=== PATIENT | male | born 1990 | race Caucasian/White ===

== ENCOUNTER 2020-06-26 07:05 | Emergency (ER) | payer MEDICAID, SELFPAY | END 2020-06-26 08:16 | disposition left against medical advice (07) | PROVIDERS: Emergency Provider Emergency Medicine | DX: R10.9 Unspecified abdominal pain (principal); I10 Essential (primary) hypertension; F17.210 Nicotine dependence, cigarettes, uncomplicated ==

== ENCOUNTER 2020-06-26 08:34 | Inpatient (IN) | payer MEDICAID, SELFPAY ==
[2020-06-26 09:15] VITALS: BP 130/77; PULSE 85; RESP 18; TEMP 36.7; O2SAT 96; BMI 38.4
--- NOTE | 2020-06-26 09:32 | US_ITS ---
EXAMINATION: US ABDOMEN LIMITED CLINICAL INFORMATION: Abdominal pain. COMPARISON: Previous CT of the abdomen and pelvis March 2017 TECHNIQUE: Real-time imaging of the right upper quadrant abdominal viscera. FINDINGS: PANCREAS: Not well visualized due to bowel gas LIVER: Liver echotexture is increased probably representing fatty infiltration. There is a hypoechoic area adjacent to the gallbladder, characteristic location of focal fatty sparing.. No focal hepatic lesion. There is no intrahepatic biliary duct dilatation seen. GALLBLADDER: The gallbladder wall is thickened and edematous measuring 6 mm. No gallstones are seen. The gallbladder is normal in size. There is no pericholecystic fluid. The sterile processing technologist reports the patient is tender over the gallbladder. COMMON BILE DUCT: Normal in caliber measuring 0.7 cm in diameter. RIGHT KIDNEY: Normal. No hydronephrosis. No renal calculi or focal parenchymal lesions. The kidney measures 12.3 cm in maximum dimension. FREE FLUID: None. US/US abdomen limited IMPRESSION: Echogenic liver probably representing fatty infiltration. Thickened edematous gallbladder wall. The gallbladder is normal in size and no gallstones are seen. Differential would include acalculous cholecystitis and gallbladder wall thickening related to liver disease, low albumin and cholangitis. If there is clinical suspicion of acalculous cholecystitis, HIDA scan would be recommended. Nonvisualization of the pancreas.
--- NOTE | 2020-06-26 10:04 | ED.ABDPAIN ---
HPI - Abdominal Pain General Chief Complaint: Abdominal Pain Stated Complaint: abd pain Time Seen by Provider: 06/26/20 09:25 Source: patient Mode of arrival: ambulatory History of Present Illness HPI narrative: 30-year-old male with a past medical history of gallstones presenting to the ED complaining of epigastric/RUQ abdominal pain radiating to back since last night. Admits to similar symptoms in the past with his gallstones, symptoms worse after eating greasy/fatty foods. Admits to associated nausea. Denies fever, chills, dysuria/hematuria, vomiting, diarrhea MD elicited complaint: abdominal pain Related Data Allergies Allergy/AdvReac Type Severity Reaction Status Date / Time aspirin [ASPIRIN] Allergy Unknown STOMACH Unverified 06/26/20 11:53 UPSET morphine [MORPHINE] Allergy Unknown RASH Unverified 06/26/20 11:53 Review of Systems Review of Systems Constitutional: No Weight loss, No Fever, No Chills Cardiovascular: No Chest Pain, No SOB Respiratory: No Cough, No Sputum Gastrointestinal: + Nausea, No Vomiting, No Diarrhea, No Constipation, + Abdominal pain Genitourinary: No irregular bleeding, No Dysuria, No Urinary Frequency, No Hematuria, No Flank Pain Musculoskeletal: No joint pain, No Myalgias, No Joint Swelling Skin: No Skin Lesions, No rash Yes all other systems are reviewed and are negative Physical Exam Vital Signs: Vital Signs: Last Vital Signs Temp 98.0 F 06/26/20 09:15 Pulse 61 06/26/20 16:05 Resp 16 06/26/20 16:05 BP 114/67 06/26/20 16:05 Pulse Ox 98 06/26/20 16:05 Body Mass Index 38.4 Const: General: cooperative and healthy appearing Orientation/consciousness: patient oriented x3 Limitations: no limitations HENMT: Head: Yes normal to inspection Ears: hearing grossly normal bilaterally General nose exam: Normal external nose present Face and sinus: Yes normal facial exam Eyes: General: appearance normal, both eyes and all related structures EOM: EOMs intact bilaterally Neck: Neck: Yes normal visual inspection Resp: Effort & Inspection: normal respiratory effort Cardio: Rate: regular rate GI: Inspection: Yes normal to inspection Palpation (GI): Soft to palpation, Tenderness to palpation present (GI) in the epigastrum and in the RUQ, no guarding and not rigid : General: Yes no CVA tenderness Back/Spine/Pelvis: Back: no CVA tenderness Skin: Rashes: no rashes Wounds: no wounds Neuro: General: patient oriented x3 Gait exam (Neuro): Normal gait present Extrem: General: Yes normal to inspection Course Course Course Narrative: -1221-- no leukocytosis, ALT mildly elevated, labs otherwise unremarkable. UA negative US abdomen limited IMPRESSION: Echogenic liver probably representing fatty infiltration. Thickened edematous gallbladder wall. The gallbladder is normal in size and no gallstones are seen. Differential would include acalculous cholecystitis and gallbladder wall thickening related to liver disease, low albumin and cholangitis. If there is clinical suspicion of acalculous cholecystitis, HIDA scan would be recommended. Nonvisualization of the pancreas >> HIDA scan ordered -head is showing cystic duct obstruction > spoke to surgery Dr. Gonzalez patient will be admitted for acute cholecystitis MDM - Abdominal Pain MDM Narrative Medical decision making narrative: 30-year-old male with a past medical history of gallstones presenting to the ED complaining of epigastric/RUQ abdominal pain radiating to back since last night. On exam VSS, NAD, abdomen tender to palpation epigastric/RUQ. No rebound or guarding. Concern for cholecystitis/cholelithiasis vs pancreatitis. Lower concern for UTI/pyelo/appendicitis or diverticulitis. Plan: Labs, UA, abdomen ultrasound, IVF/symptomatic treatment, reassess Lab Data Result diagrams: 06/26/20 10:08 06/26/20 10:08 Labs: Lab Results 06/26/20 06/26/20 06/26/20 Range/Units 10:08 10:08 10:08 WBC 8.3 (4.8-10.8) X10*3/uL RBC 4.98 (4.60-5.80) X10*6/uL Hgb 14.4 (14.0-18.0) g/dl Hct 44.3 (42-52) % MCV 89.0 (80-98) fL MCH 28.9 (27.0-33.0) pg MCHC 32.5 (31.0-36.0) g/dl RDW 13.9 (11.0-16.0) % Plt Count 246 (160-400) X10*3/uL MPV 10.7 (9.4-12.4) fL Immature Gran % (Auto) 0.2 (0.0-0.4) % Neut % (Auto) 75.6 H (45-73) % Lymph % (Auto) 16.2 L (20-40) % [place] % (Auto) 7.1 (2-11) % Eos % (Auto) 0.7 (0-4) % Baso % (Auto) 0.2 (0-2) % Lymph # (Auto) 1.3 (1.2-4.9) X10*3/uL [place] # (Auto) 0.6 (0.1-1.2) X10*3/uL Eos # (Auto) 0.1 (0.0-0.4) X10*3/uL Baso # (Auto) 0.0 (0.0-0.2) X10*3/uL Abs Immat Gran (auto) 0.02 (0.00-0.03) X10*3/uL Absolute Neuts (auto) 6.2 (2.0-8.3) X10*3/uL Absolute Nucleated RBC 0.000 (0.0-0.012) X10*3/uL Nucleated RBC % (auto) 0.0 (0.0-0.2) /100WBC Hold Blue Top SEE NOTE Sodium 139 (135-145) mmol/L Potassium 4.6 (3.3-5.1) mmol/L Chloride 104 (96-108) mmol/L Carbon Dioxide 29 (22-29) mmol/L Anion Gap 11 L (12-20) BUN 15 (9-16) mg/dL Creatinine 0.85 (0.5-1.4) mg/dL Estim Creat Clear Calc 162.4 Estimated GFR > 60 Random Glucose 96 (60-115) mg/dL Calcium 9.0 (8.4-10.2) mg/dL Magnesium 2.1 (1.6-2.6) mg/dL Total Bilirubin 0.5 (0.0-1.0) mg/dL Direct Bilirubin 0.2 (0.0-0.5) mg/dL AST 23 (5-37) U/L ALT 57 H (0-40) U/L Alkaline Phosphatase 79 (39-117) U/L Total Protein 7.1 (6.5-8.0) g/dL Albumin 4.4 (3.5-5.0) g/dL Lipase (8-78) U/L Urine Color Urine Appearance Urine pH (5.0-8.0) Ur Specific [place] (1.005-1.025) Urine Protein (NEG-TRACE) MG/DL Urine Glucose (UA) (NEG) MG/DL Urine Ketones (NEG) MG/DL Urine Blood (NEG) Urine Nitrite (NEG) Ur Leukocyte Esterase (NEG) 06/26/20 06/26/20 Range/Units 10:08 10:08 WBC (4.8-10.8) X10*3/uL RBC (4.60-5.80) X10*6/uL Hgb (14.0-18.0) g/dl Hct (42-52) % MCV (80-98) fL MCH (27.0-33.0) pg MCHC (31.0-36.0) g/dl RDW (11.0-16.0) % Plt Count (160-400) X10*3/uL MPV (9.4-12.4) fL Immature Gran % (Auto) (0.0-0.4) % Neut % (Auto) (45-73) % Lymph % (Auto) (20-40) % [place] % (Auto) (2-11) % Eos % (Auto) (0-4) % Baso % (Auto) (0-2) % Lymph # (Auto) (1.2-4.9) X10*3/uL [place] # (Auto) (0.1-1.2) X10*3/uL Eos # (Auto) (0.0-0.4) X10*3/uL Baso # (Auto) (0.0-0.2) X10*3/uL Abs Immat Gran (auto) (0.00-0.03) X10*3/uL Absolute Neuts (auto) (2.0-8.3) X10*3/uL Absolute Nucleated RBC (0.0-0.012) X10*3/uL Nucleated RBC % (auto) (0.0-0.2) /100WBC Hold Blue Top Sodium (135-145) mmol/L Potassium (3.3-5.1) mmol/L Chloride (96-108) mmol/L Carbon Dioxide (22-29) mmol/L Anion Gap (12-20) BUN (9-16) mg/dL Creatinine (0.5-1.4) mg/dL Estim Creat Clear Calc Estimated GFR Random Glucose (60-115) mg/dL Calcium (8.4-10.2) mg/dL Magnesium (1.6-2.6) mg/dL Total Bilirubin (0.0-1.0) mg/dL Direct Bilirubin (0.0-0.5) mg/dL AST (5-37) U/L ALT (0-40) U/L Alkaline Phosphatase (39-117) U/L Total Protein (6.5-8.0) g/dL Albumin (3.5-5.0) g/dL Lipase 19 (8-78) U/L Urine Color YELLOW Urine Appearance HAZY Urine pH 7.0 (5.0-8.0) Ur Specific [place] 1.020 (1.005-1.025) Urine Protein NEG (NEG-TRACE) MG/DL Urine Glucose (UA) NEG (NEG) MG/DL Urine Ketones NEG (NEG) MG/DL Urine Blood NEG (NEG) Urine Nitrite NEG (NEG) Ur Leukocyte Esterase NEG (NEG) Discharge Plan Discharge Clinical Impression: Acute cholecystitis Patient Disposition: Admitted As Inpatient [facility] Past Medical History Attestation statement: The following information was validated with the patient. Medical History (Updated 06/26/20 @ 17:20 by EDITH Mejía) Gall stone Social History Social History Alcohol intake: current Alcohol intake frequency: a few times a week Use of substances other than those prescribed or required for medical reasons: Yes Any prior treatment program specific to substance use: No Advance Directives: Yes Advance Directives Information Provided: No Advance Directives on File: No
[2020-06-26 10:12] LABS: MANUAL DIFF FLAG NO
[2020-06-26 10:16] LABS: Basophils Percent Auto 0.2 % (0-2); Eosinophils Absolute Auto 0.1 X10*3/uL (0.0-0.4); Eosinophils Percent Auto 0.7 % (0-4); Hematocrit 44.3 % (42-52); Hemoglobin 14.4 g/dl (14.0-18.0); Imm Gran Abs Auto 0.02 X10*3/uL (0.00-0.03); Imm Gran Pct Auto 0.2 % (0.0-0.4); Lymphocytes Absolute Auto 1.3 X10*3/uL (1.2-4.9); Lymphocytes Percent Auto 16.2 % (20-40); Mean Corpuscular HGB Conc 32.5 g/dl (31.0-36.0); Mean Corpuscular Hemoglobin 28.9 pg (27.0-33.0); Mean Platelet Volume 10.7 fL (9.4-12.4); Monocytes Absolute Auto 0.6 X10*3/uL (0.1-1.2); Monocytes Percent Auto 7.1 % (2-11); Neutrophils Absolute Auto 6.2 X10*3/uL (2.0-8.3); Neutrophils Percent Auto 75.6 % (45-73); Platelet Count 246 X10*3/uL (160-400); Red Blood Count 4.98 X10*6/uL (4.60-5.80); Red Cell Distribution Width 13.9 % (11.0-16.0); White Blood Count 8.3 X10*3/uL (4.8-10.8)
[2020-06-26 10:17] LABS: Appearance Urine HAZY; Color Urine YELLOW; Glucose Urine UA NEG (NEG); Leukocyte Esterase Urine NEG (NEG); Nitrite Urine NEG (NEG); Urine Blood NEG (NEG); Urine Ketones NEG (NEG); Urine Protein NEG (NEG-TRACE)
[2020-06-26] MEDS: 0.9 % Sodium Chloride 1,000 ML 999 ML IVCONT (10:19)
[2020-06-26] MEDS: Ketorolac Tromethamine 15 MG/ML VIAL IVPUSH (10:19)
[2020-06-26] MEDS: ondansetron HCL 4 MG/2 ML VIAL IVPUSH (10:19)
[2020-06-26 10:38] LABS: Alanine Aminotransferase 57 U/L (0-40); Albumin Level 4.4 g/dL (3.5-5.0); Alkaline Phosphatase 79 U/L (39-117); Anion Gap 11 (12-20); Aspartate Amino Transferase 23 U/L (5-37); Bilirubin Direct 0.2 mg/dL (0.0-0.5); Bilirubin Total 0.5 mg/dL (0.0-1.0); Blood Urea Nitrogen 15 mg/dL (9-16); Carbon Dioxide 29 mmol/L (22-29); Chloride 104 mmol/L (96-108); Creatinine Clr Calc Pharmacy 162.4; Estimated Glomerular Filt Rate > 60; Glucose Random 96 mg/dL (60-115); Magnesium 2.1 mg/dL (1.6-2.6); Potassium 4.6 mmol/L (3.3-5.1); Sodium 139 mmol/L (135-145); Total Protein 7.1 g/dL (6.5-8.0)
[2020-06-26 10:39] LABS: Lipase 19 U/L (8-78)
[2020-06-26 11:44] VITALS: BP 123/80; PULSE 72; RESP 16; O2SAT 98
[2020-06-26] MEDS: HYDROmorphone HCl 0.5 MG/0.5 ML SYRINGE IVPUSH (11:56)
--- NOTE | 2020-06-26 12:01 | PC.NURSE ---
Pt states minimal pain relief with treatment, thus far. Juan Ramon, FARM MANAGEMENT ADVISER made aware and provided order. Pt medicated per emar. Will continue to monitor.
--- NOTE | 2020-06-26 13:10 | NM_ITS ---
EXAMINATION: HIDA SCAN. CLINICAL INFORMATION: Right upper quadrant pain. No gallstones. COMPARISON: Ultrasound abdomen 06/26/2020. TECHNIQUE: Following intravenous administration of 5 mCi of 99m technetium mebrofenin, images over the right upper quadrant graft in up to 2 hours. FINDINGS: There is normal hepatic uptake without any focal defect. There is prompt visualization of CBD by 60 minutes. Small bowel is visualized by by 35 minutes. Gallbladder is not visualized up to 2 hours. NM/NM hepatobiliary wo pharm IMPRESSION: Findings consistent with cystic duct obstruction. Normal patency of CBD. Normal hepatic uptake.
--- NOTE | 2020-06-26 14:35 | PC.NURSE ---
Pt at [facility].
--- NOTE | 2020-06-26 16:04 | PC.NURSE ---
Pt returned from [facility].
[2020-06-26 16:05] VITALS: BP 114/67; PULSE 61; RESP 16; O2SAT 98
[2020-06-26] MEDS: Piperacillin Sodium/Tazobactam 3.375 GM in 0.9 % Sodium Chloride 50 ML IV (18:35)
[2020-06-26 18:57] LABS: COVID-19 Test Negative (Negative)
[2020-06-26 19:02] LABS: Lactic Acid 0.6 mmol/L (0.5-2.0)
[2020-06-26 20:00] VITALS: BP 120/59; PULSE 73; RESP 20; TEMP 36.7; O2SAT 98
--- NOTE | 2020-06-26 21:53 | MHC.CM.PN ---
CM met with pt. NPO after MN. For surgery. Pt lives with girlfriend in apartment on the 4th floor. Tells CM he will stay with brother who lives on first floor after surgery. Pt tells Cm he drove himself to the [facility]. Aware that he cannot drive himself home after surgery. Pt cannot remember his PCP. States its someone at [facility]. Pt willing to complete HCP. Requests his mother, Karla Romano ([phone]) be his HCP. D/C plan is home without services. Family to provide transportation. CM to follow for d/c needs
--- NOTE | 2020-06-26 22:24 | MHC.CM.PN ---
HCP reviewed, completed and signed per protocol. Copies to pt. Uploaded into [employer] and [employer].
[2020-06-27] VITALS (15 sets, daily range): BP systolic 105–154; BP diastolic 62–91; PULSE 64–82; RESP 14–20; TEMP 36.2–36.9; O2SAT 93–100; BMI 38.3
[2020-06-27] MEDS: Piperacillin Sodium/Tazobactam 3.375 GM in 0.9 % Sodium Chloride 50 ML IV ×2 (00:50→05:37)
--- NOTE | 2020-06-27 09:23 | P.HPGS_ITS ---
History of Present Illness History of Present Illness Date of Service: 06/27/20 Chief complaint: Cholecystitis Narrative: Osvaldo Mcnamara is a 30 year old male who presented to the emergency department yesterday with his 3rd episode epigastric discomfort after eating fatty meals. Patient had been seen in the emergency department previously for this discomfort and had ultrasound documentation of cholelithiasis without cholecystitis previously. Patient reports this episode began yesterday morning and he came to the emergency department around 7 in the morning. He reports the prior evening he had Malay food and the pain began about 1 hour later in epigastrium. He reports no exacerbating or alleviating factors. He reports the pain was a 10/10 on a pain scale and radiated through the epigastrium to his back. He was seen in the emergency department and given pain medications with resolution of the pain. Denies any further abdominal pain. Patient did undergo ultrasound which showed no evidence of gallstones but thickened gallbladder wall. Patient also underwent a HIDA scan which showed no visualization of the gallbladder after 2 hours. Patient denies any fever chills shortness of breath or chest pain. Review of Systems Review of Systems: Yes all other systems are reviewed and are negative Constitutional: Constitutional: Denies chills, Denies daytime sleepiness, Denies difficulty sleeping, Denies excessive sweating, Denies fatigue, Denies fever(s), Denies headache(s), Denies night sweats, Denies snoring, Denies stops breathing during sleep and Denies weakness Eyes: Eyes: Denies blurry vision, Denies other visual disturbances and Denies requires corrective lenses ENT: Denies bleeding gums, Denies dysphagia, Reports dizziness, Denies headache(s), Denies hearing loss, Denies sinus pain and Denies sore throat Cardiovascular: Cardiovascular: Denies chest pain, Denies chest pain at rest, Denies chest pain with activity, Denies syncope, Denies irregular heart rhythm, Denies leg edema, Denies lightheadedness, Denies dyspnea, Denies dyspnea on exertion and Denies orthopnea Respiratory: Respiratory: Denies chest congestion, Denies cough, Denies dyspnea, Denies dyspnea on exertion, Denies snoring and Denies wheezing Gastrointestinal: Gastrointestinal: Denies abdominal pain, Denies melena, Denies bloating, Denies constipation, Denies dysphagia, Denies heartburn, Denies diarrhea, Denies nausea and Denies vomiting Genitourinary: Genitourinary: Denies hematuria, Denies difficulty urinating and Denies nocturia Musculoskeletal: Musculoskeletal: Denies abnormal gait, Denies back pain, Denies deformity, Denies arthralgias, Denies joint swelling and Denies stiffness Integumentary/Breasts: Skin/Breast: Denies breast pain, Denies breast mass and Denies nipple discharge Neurologic: Denies abnormal gait, Reports dizziness, Denies syncope, Denies headache(s), Denies seizure-like activity and Denies weakness Psychiatric: Psychiatric: Denies abnormal sleep pattern, Denies anxiety, Denies depression and Denies panic attacks Endocrine: Endocrine: Denies excessive sweating, Denies fatigue, Denies heat intolerance, Denies polyphagia, Denies polydipsia and Denies polyuria Hematologic/Lymphatic: Hematologic/Lymphatic: Denies easy bleeding and Denies easy bruising Allergic/Immunologic: Allergic/Immunologic: Denies wheezing PMFSH Past Medical History Medical History (Updated 06/27/20 @ 09:25 by Monserrat Corbett MD) Cholelithiasis HTN (hypertension) Obesity Family History Family History (Updated 06/27/20 @ 09:27 by Monserrat Corbett MD) Mother History of cholecystectomy Father No problems noted. Brother No problems noted. Brother No problems noted. Sister No problems noted. Sister No problems noted. Daughter No problems noted. Surgical History Surgical History (Updated 06/27/20 @ 09:25 by Monserrat Corbett MD) No pertinent past surgical history Social History Social History (Updated 06/27/20 @ 09:28 by Monserrat Corbett MD) Household Members: Family Housing: House Alcohol intake: current Alcohol intake frequency: holidays/special occasions only Alcohol type: beer Smoking Status: Current every day smoker Tobacco Type: Cigarette Packs Per Day: 0.5 Cigarettes Per Day: 10.0 Smoked in Last 30 Days: Yes Patient Interested in Nicotine Replacement: No Patient Given Instructions on How to Stop Smoking: No Use of substances other than those prescribed or required for medical reasons: Yes Substance Use Type Other:: PCP Last Used Substance: Days (ago) Last Used Substance Other:: 2 days ago Any prior treatment program specific to substance use: No Do you feel safe in your current relationship?: No Is there a partner from a previous relationship who is making you feel unsafe now?: No Are you made to feel afraid or neglected: No Advance Directives: No Advance Directives Information Provided: No Advance Directives on File: No Do you have thoughts of harming others: None Do you have a plan to hurt others: No Plan Recently lost weight without trying: No service: No Current occupational status: unemployed Meds Allergies Allergy/AdvReac Type Severity Reaction Status Date / Time aspirin [ASPIRIN] Allergy Unknown STOMACH Verified 06/27/20 09:28 UPSET morphine [MORPHINE] Allergy Unknown RASH Verified 06/27/20 09:28 Home Medications Medication Instructions Recorded Confirmed Type No Known Home Meds 06/26/20 06/26/20 History Physical Exam Vital Signs: Vital Signs: Last Vital Signs Temp 97.8 F 06/27/20 08:00 Pulse 80 06/27/20 08:00 Resp 16 06/27/20 08:00 BP 145/72 H 06/27/20 08:00 Pulse Ox 97 06/27/20 08:00 Body Mass Index 38.4 Const: General: cooperative, healthy appearing, comfortable, no acute distress and well developed Nutritional Appearance: obese Bjorn entation/consciousness: patient oriented x3 Limitations: no limitations HENMT: Head: Yes normal to inspection, Yes normocephalic and Yes atraumatic Mouth: oropharynx normal and moist mucous membranes Eyes: General: appearance normal, both eyes and all related structures Sclerae: sclerae normal EOM: EOMs intact bilaterally Neck: Neck: Yes normal visual inspection, Yes full ROM and Yes no lymphadenopathy Thyroid: Thyroid normal Chest: Chest palpation & inspection: normal inspection of the chest Resp: Effort & Inspection: normal respiratory effort and able to speak in complete sentences Auscultation: clear to auscultation bilaterally, no crackles, no rales, no rhonchi and no wheezes Cardio: Rate: regular rate Heart sounds: S1 normal heart sound present and S2 normal heart sound present GI: Inspection: Yes obesity Palpation (GI): Soft to palpation, nontender, no guarding and no hernias Rectal Exam - Male: Yes deferred Skin: General skin exam: no rashes or lesions noted and no jaundice Wounds: no wounds Hair: normal Nails: normal Neuro: General: patient oriented x3 Cranial nerves: Yes CN's II-XII intact bilaterally Cognition (Neuro): normal cognition Gait exam (Neuro): Normal gait present Extrem: General: Yes normal to inspection, Yes full ROM, Yes no clubbing, cyanosis or edema and Yes no calf tenderness Psych: Appearance: grossly normal Mental Status: mental status grossly normal Speech and movement: Normal speech and movement present Affect: normal affect Attitude: cooperative Thought process: Normal thought process present Thought content: Normal thought content present Insight: Good insight present (Psych) Judgement: Good judgement present (Psych) Results Results Labs: Short CBC 06/26/20 Range/Units 10:08 WBC 8.3 (4.8-10.8) X10*3/uL Hgb 14.4 (14.0-18.0) g/dl Hct 44.3 (42-52) % Plt Count 246 (160-400) X10*3/uL BMP 06/26/20 10:08 Sodium 139 Potassium 4.6 Chloride 104 Carbon Dioxide 29 BUN 15 Creatinine 0.85 Calcium 9.0 Liver Function 06/26/20 Range/Units 10:08 Total Bilirubin 0.5 (0.0-1.0) mg/dL Direct Bilirubin 0.2 (0.0-0.5) mg/dL AST 23 (5-37) U/L ALT 57 H (0-40) U/L Alkaline Phosphatase 79 (39-117) U/L Albumin 4.4 (3.5-5.0) g/dL Urine 06/26/20 Range/Units 10:08 Urine Color YELLOW Urine Appearance HAZY Urine pH 7.0 (5.0-8.0) Ur Specific [place] 1.020 (1.005-1.025) Urine Protein NEG (NEG-TRACE) MG/DL Urine Glucose (UA) NEG (NEG) MG/DL Assessment and Plan (1) Acute cholecystitis: Status: Acute This is a 30-year-old gentleman with 3 prior episodes biliary colic now with acute cholecystitis by HIDA scan. Patient will be taken to the operating room for a laparoscopic possible open cholecystectomy for treatment of acute cholecystitis. Risks benefits and alternatives were discussed with the patient he agrees to proceed.
--- NOTE | 2020-06-27 09:43 | HO.ANESPROP2 ---
[facility] Past Medical History Medical History Cholelithiasis HTN (hypertension) Obesity Family History Family History Mother History of cholecystectomy Father No problems noted. Brother No problems noted. Brother No problems noted. Sister No problems noted. Sister No problems noted. Daughter No problems noted. Surgical History Surgical History No pertinent past surgical history Social History Social History Household Members: Family Housing: House Alcohol intake: current Alcohol intake frequency: holidays/special occasions only Alcohol type: beer Smoking Status: Current every day smoker Tobacco Type: Cigarette Packs Per Day: 0.5 Cigarettes Per Day: 10.0 Smoked in Last 30 Days: Yes Patient Interested in Nicotine Replacement: No Patient Given Instructions on How to Stop Smoking: No Use of substances other than those prescribed or required for medical reasons: Yes Substance Use Type Other:: PCP Last Used Substance: Days (ago) Last Used Substance Other:: 2 days ago Any prior treatment program specific to substance use: No Do you feel safe in your current relationship?: No Is there a partner from a previous relationship who is making you feel unsafe now?: No Are you made to feel afraid or neglected: No Advance Directives: No Advance Directives Information Provided: No Advance Directives on File: No Do you have thoughts of harming others: None Do you have a plan to hurt others: No Plan Recently lost weight without trying: No service: No Current occupational status: unemployed Meds Allergies Allergy/AdvReac Type Severity Reaction Status Date / Time aspirin [ASPIRIN] Allergy Unknown STOMACH Verified 06/27/20 09:28 UPSET morphine [MORPHINE] Allergy Unknown RASH Verified 06/27/20 09:28 Home Medications Medication Instructions Recorded Confirmed Type No Known Home Meds 06/26/20 06/26/20 History Exam Exam Date and Time: June 27, [id number] Height,Weight and Vital Signs: Height 5 ft 9 in Weight 117.934 kg Last Vital Signs Temp 97.8 F 06/27/20 08:00 Pulse 80 06/27/20 08:00 Resp 16 06/27/20 08:00 BP 145/72 H 06/27/20 08:00 Pulse Ox 97 06/27/20 08:00 Pertinent Lab Results Pertinent Lab Results: Laboratory Tests 06/26/20 06/26/20 06/26/20 10:08 10:08 10:08 WBC 8.3 RBC 4.98 Hgb 14.4 Hct 44.3 MCV 89.0 MCH 28.9 MCHC 32.5 RDW 13.9 Plt Count 246 MPV 10.7 Immature Gran % (Auto) 0.2 Neut % (Auto) 75.6 H Lymph % (Auto) 16.2 L Wilkinson % (Auto) 7.1 Eos % (Auto) 0.7 Baso % (Auto) 0.2 Lymph # (Auto) 1.3 Wilkinson # (Auto) 0.6 Eos # (Auto) 0.1 Baso # (Auto) 0.0 Abs Immat Gran (auto) 0.02 Absolute Neuts (auto) 6.2 Absolute Nucleated RBC 0.000 Nucleated RBC % (auto) 0.0 Hold Blue Top SEE NOTE Sodium 139 Potassium 4.6 Chloride 104 Carbon Dioxide 29 Anion Gap 11 L BUN 15 Creatinine 0.85 Estim Creat Clear Calc 162.4 Estimated GFR > 60 Random Glucose 96 Lactic Acid Calcium 9.0 Magnesium 2.1 Total Bilirubin 0.5 Direct Bilirubin 0.2 AST 23 ALT 57 H Alkaline Phosphatase 79 Total Protein 7.1 Albumin 4.4 Lipase Urine Color Urine Appearance Urine pH Ur Specific [place] Urine Protein Urine Glucose (UA) Urine Ketones Urine Blood Urine Nitrite Ur Leukocyte Esterase COVID-19 ([facility]) COVID-19 Clin Com Blood Type Antibody Screen 06/26/20 06/26/20 06/26/20 10:08 10:08 18:28 WBC RBC Hgb Hct MCV MCH MCHC RDW Plt Count MPV Immature Gran % (Auto) Neut % (Auto) Lymph % (Auto) Wilkinson % (Auto) Eos % (Auto) Baso % (Auto) Lymph # (Auto) Wilkinson # (Auto) Eos # (Auto) Baso # (Auto) Abs Immat Gran (auto) Absolute Neuts (auto) Absolute Nucleated RBC Nucleated RBC % (auto) Hold Blue Top Sodium Potassium Chloride Carbon Dioxide Anion Gap BUN Creatinine Estim Creat Clear Calc Estimated GFR Random Glucose Lactic Acid Calcium Magnesium Total Bilirubin Direct Bilirubin AST ALT Alkaline Phosphatase Total Protein Albumin Lipase 19 Urine Color YELLOW Urine Appearance HAZY Urine pH 7.0 Ur Specific [place] 1.020 Urine Protein NEG Urine Glucose (UA) NEG Urine Ketones NEG Urine Blood NEG Urine Nitrite NEG Ur Leukocyte Esterase NEG COVID-19 ([facility]) Negative COVID-19 Clin Com See Note Blood Type Antibody Screen 06/26/20 06/26/20 18:28 18:28 WBC RBC Hgb Hct MCV MCH MCHC RDW Plt Count MPV Immature Gran % (Auto) Neut % (Auto) Lymph % (Auto) Wilkinson % (Auto) Eos % (Auto) Baso % (Auto) Lymph # (Auto) Wilkinson # (Auto) Eos # (Auto) Baso # (Auto) Abs Immat Gran (auto) Absolute Neuts (auto) Absolute Nucleated RBC Nucleated RBC % (auto) Hold Blue Top Sodium Potassium Chloride Carbon Dioxide Anion Gap BUN Creatinine Estim Creat Clear Calc Estimated GFR Random Glucose Lactic Acid 0.6 Calcium Magnesium Total Bilirubin Direct Bilirubin AST ALT Alkaline Phosphatase Total Protein Albumin Lipase Urine Color Urine Appearance Urine pH Ur Specific [place] Urine Protein Urine Glucose (UA) Urine Ketones Urine Blood Urine Nitrite Ur Leukocyte Esterase COVID-19 ([facility]) COVID-19 Clin Com Blood Type A Positive Antibody Screen NEGATIVE
--- NOTE | 2020-06-27 12:07 | W.PM.OPN ---
Operative Note Operative Note Date of Service: 06/27/20 Narrative: Patient was brought into the operating room, placed on operating table in the supine position. Normal DVT prophylaxis was instituted. Patient received 2 g of IV cefotetan preoperatively. General anesthesia was induced. The abdomen was prepped and draped in the normal sterile fashion using ChloraPrep. A safety time-out was performed. Next a mixture of 1% lidocaine with epinephrine and 0.25% Marcaine plain was used to anesthetize the planned incision site in the supraumbilical position. A 11. Scalpel was used to make a 2 cm infraumbilical transverse surgical incision through which the subcutaneous tissues were dissected down to level the fascia. The fascia was grasped did between 2 Aure clamps and entered using a 11. Scalpel for about 1 cm vertically. An 0 Vicryl suture was placed on either side of the open fascia. A finger was used to bluntly gain access to the intra-abdominal cavity. A 12 mm Corcoran trocar was introduced into the abdomen and secured to the abdominal wall using sutures on the fascia. The abdomen was insufflated to 15 mmHg. Next a 5 mm 30 degree laparoscoped was introduced into the abdomen and used to survey the abdominal cavity which was normal. Next 3 additional 5 mm ports were placed. One port was placed in the epigastrium to the right of the falciform ligament, 2 ports were placed in the right upper quadrant 1 laterally and 1 more medially. The patient was placed in reverse Trendelenburg and left side tilted down. A grasper was placed through the right lateral port and used to grasp the fundus of the gallbladder and retracted it cephalad. Another grasper was used to grasp the infundibulum of the gallbladder retracted inferior and laterally. We cleared the cystic artery and cystic duct circumferentially and the distal 1/3 of the gallbladder with the gallbladder fossa. This gave us the critical view of safety. We then placed 3 clips on the cystic duct distal to the gallbladder 1 clip on the cystic duct proximal to the gallbladder. We placed 1 clip on the cystic artery proximal to the gallbladder and 2 clips on the cystic artery distal to the gallbladder and transected both structures in between clips. We took the remainder of the gallbladder off the gallbladder fossa and placed in Endo-Catch bag and removed it from the abdomen. We then evaluated the gallbladder fossa it was hemostatic there was no evidence of any bile draining or any bleeding noted. The clips were in place on the cystic artery and cystic duct stumps. We then removed the 5 mm ports under direct vision there was no bleeding noted from these port sites. We desufflated the abdomen through the last remaining port and removed the last port and laparoscope. We reapproximated the fascial defect at the umbilicus using a [id number] 0 Vicryl suture and tied the original fascial sutures over that closure. There was no residual fascial defect. We placed an additional amount of local anesthetic into the fascia closure site. We closed all skin incisions with a 4 Monocryl subcuticular stitch. We cleaned and dried the skin and applied Dermabond skin glue to all skin incisions. All counts were correct at the end the case there were no complications. The patient was awake and in stable condition prior to extubation and transfer to the recovery room.
--- NOTE | 2020-06-27 12:09 | P.BOP_ITS ---
Brief Operative Note Date of Service: 06/27/20 Pre-op diagnosis: Acute cholecystitis Post-op diagnosis: same Procedure: Laparoscopic cholecystectomy Implants: Medium clips Surgeon: Monserrat Corbett MD Anesthesia: GETA Shopping Investigator: Viviana Porter Estimated blood loss (mL): 10 Pathology: other (Gallbladder) Condition: stable Disposition: PACU
[2020-06-27] MEDS: fentaNYL citrate/PF 100 MCG/2 ML VIAL 50 MCG IVPUSH (13:06)
[2020-06-27] MEDS: oxyCODONE HCl Immed Release 5 MG TABLET 10 MG PO ×2 (13:15→17:04)
--- NOTE | 2020-06-27 13:25 | PC.NURSE ---
1316 STS PAIN NOW 11/30 ASKING WHEN HE WILL GO UPSTAIRS, O2 DECREASED TO 2L NC CAPNOGRAPHY, ENC REST ABD INCISIONS GLUE CDI ICE PACKS REMAIN TO ABD
--- NOTE | 2020-06-27 14:35 | PM.DS ---
DS: Providers Provider Date of Service: 06/27/20 Date of admission: 06/26/20 17:51 Primary care physician: Unknown Physician DS: Diagnosis Discharge Diagnosis (1) Acute cholecystitis: Status: Acute (2) S/P laparoscopic cholecystectomy: Status: Acute DS: Medications Discharge Medications Home Medications: Previous Rx's Medication Instructions Recorded docusate sodium [Colace] 100 mg PO BID PRN #30 cap 06/27/20 oxycodone 5 mg PO Q4H PRN #24 tab 06/27/20 DS: Summary Hospital Course Hospital Course: BRIEF HPI: Osvaldo Mcnamara is a 30 year old male who presented to the emergency department yesterday with his 3rd episode epigastric discomfort after eating fatty meals. Patient had been seen in the emergency department previously for this discomfort and had ultrasound documentation of cholelithiasis without cholecystitis previously. Patient reports this episode began yesterday morning and he came to the emergency department around 7 in the morning. He reports the prior evening he had [place] food and the pain began about 1 hour later in epigastrium. He reports no exacerbating or alleviating factors. He reports the pain was a 10/10 on a pain scale and radiated through the epigastrium to his back. He was seen in the emergency department and given pain medications with resolution of the pain. Denies any further abdominal pain. Patient did undergo ultrasound which showed no evidence of gallstones but thickened gallbladder wall. Patient also underwent a HIDA scan which showed no visualization of the gallbladder after 2 hours. Patient denies any fever chills shortness of breath or chest pain. HOSPITAL COURSE: The patient was admitted to the surgical service for further treatment of acute cholecystitis. He was made npo, started on IVF and IV zosyn. Treatment options were discussed with the patient including laparoscopic cholecystectomy possible open and antibiotics and observation. The patient elected to proceed with surgery and he was added onto the OR schedule for that day. On 06/27/20, a laparoscopic cholecystectomy was performed by Dr. Corbett without complication. The patient tolerated the procedure well and was doing very well post operatively. He was reassessed on the floor and was tolerating a solid diet and was comfortable on PO analgesics. His abdomen was benign with clean and intact incisions. He felt ready for discharge. He was discharged to home on 06/27/20 in stable condition. He is to follow up with Dr. Corbett in office in 2 weeks. Status at Discharge Functional status at discharge: independent ambulation Overall status at discharge: patient is progressing back to baseline Time Spent with Patient Time attestation: Total time spent providing and/or coordinating discharge services: Discharge coordination time: Less than 30 minutes Physical Exam Vital Signs: Vital Signs: Last Vital Signs Temp 97.6 F 06/27/20 13:45 Pulse 70 06/27/20 13:45 Resp 16 06/27/20 13:45 BP 123/79 06/27/20 13:45 Pulse Ox 98 06/27/20 13:45 Body Mass Index 38.3 Const: General: healthy appearing, comfortable, no acute distress and alert Orientation/consciousness: patient oriented x3 Eyes: Sclerae: sclerae normal Resp: Effort & Inspection: normal respiratory effort Cardio: Rate: regular rate GI: Inspection: No distended and Yes incision (clean, intact) Palpation (GI): Soft to palpation, Tenderness to palpation present (GI) (mild, incisional), no guarding and not rigid Percussion: Yes normal to percussion Skin: General skin exam: no rashes or lesions noted Neuro: General: patient oriented x3 Extrem: General: Yes no clubbing, cyanosis or edema DS: Data Data Completed and Pending Pending studies at discharge: Pending at discharge 06/27/20 12:00 Surgical [PTH] Routine Labs on day of discharge: Laboratory Tests 06/26/20 06/26/20 06/26/20 10:08 10:08 10:08 WBC 8.3 RBC 4.98 Hgb 14.4 Hct 44.3 MCV 89.0 MCH 28.9 MCHC 32.5 RDW 13.9 Plt Count 246 MPV 10.7 Immature Gran % (Auto) 0.2 Neut % (Auto) 75.6 H Lymph % (Auto) 16.2 L Williamson % (Auto) 7.1 Eos % (Auto) 0.7 Baso % (Auto) 0.2 Lymph # (Auto) 1.3 Williamson # (Auto) 0.6 Eos # (Auto) 0.1 Baso # (Auto) 0.0 Abs Immat Gran (auto) 0.02 Absolute Neuts (auto) 6.2 Absolute Nucleated RBC 0.000 Nucleated RBC % (auto) 0.0 Hold Blue Top SEE NOTE Sodium 139 Potassium 4.6 Chloride 104 Carbon Dioxide 29 Anion Gap 11 L BUN 15 Creatinine 0.85 Estim Creat Clear Calc 162.4 Estimated GFR > 60 Random Glucose 96 Lactic Acid Calcium 9.0 Magnesium 2.1 Total Bilirubin 0.5 Direct Bilirubin 0.2 AST 23 ALT 57 H Alkaline Phosphatase 79 Total Protein 7.1 Albumin 4.4 Lipase Urine Color Urine Appearance Urine pH Ur Specific [place] Urine Protein Urine Glucose (UA) Urine Ketones Urine Blood Urine Nitrite Ur Leukocyte Esterase COVID-19 ([facility]) COVID-19 Clin Com Blood Type Antibody Screen 06/26/20 06/26/20 06/26/20 10:08 10:08 18:28 WBC RBC Hgb Hct MCV MCH MCHC RDW Plt Count MPV Immature Gran % (Auto) Neut % (Auto) Lymph % (Auto) Williamson % (Auto) Eos % (Auto) Baso % (Auto) Lymph # (Auto) Williamson # (Auto) Eos # (Auto) Baso # (Auto) Abs Immat Gran (auto) Absolute Neuts (auto) Absolute Nucleated RBC Nucleated RBC % (auto) Hold Blue Top Sodium Potassium Chloride Carbon Dioxide Anion Gap BUN Creatinine Estim Creat Clear Calc Estimated GFR Random Glucose Lactic Acid Calcium Magnesium Total Bilirubin Direct Bilirubin AST ALT Alkaline Phosphatase Total Protein Albumin Lipase 19 Urine Color YELLOW Urine Appearance HAZY Urine pH 7.0 Ur Specific [place] 1.020 Urine Protein NEG Urine Glucose (UA) NEG Urine Ketones NEG Urine Blood NEG Urine Nitrite NEG Ur Leukocyte Esterase NEG COVID-19 ([facility]) Negative COVID-19 Clin Com See Note Blood Type Antibody Screen 06/26/20 06/26/20 18:28 18:28 WBC RBC Hgb Hct MCV MCH MCHC RDW Plt Count MPV Immature Gran % (Auto) Neut % (Auto) Lymph % (Auto) Williamson % (Auto) Eos % (Auto) Baso % (Auto) Lymph # (Auto) Williamson # (Auto) Eos # (Auto) Baso # (Auto) Abs Immat Gran (auto) Absolute Neuts (auto) Absolute Nucleated RBC Nucleated RBC % (auto) Hold Blue Top Sodium Potassium Chloride Carbon Dioxide Anion Gap BUN Creatinine Estim Creat Clear Calc Estimated GFR Random Glucose Lactic Acid 0.6 Calcium Magnesium Total Bilirubin Direct Bilirubin AST ALT Alkaline Phosphatase Total Protein Albumin Lipase Urine Color Urine Appearance Urine pH Ur Specific [place] Urine Protein Urine Glucose (UA) Urine Ketones Urine Blood Urine Nitrite Ur Leukocyte Esterase COVID-19 ([facility]) COVID-19 Clin Com Blood Type A Positive Antibody Screen NEGATIVE Discharge Plan Discharge Patient Disposition: Home, Self-Care Referrals: Monserrat Corbett MD [Physician] - 2 Weeks Physician,Unknown [Primary Care Provider] - Discharge Medications: New oxycodone 5 mg tablet 5 mg PO Q4H PRN (Reason: pain) Qty: 24 RF: 0 docusate sodium [Colace] 100 mg capsule 100 mg PO BID PRN (Reason: constipation) Qty: 30 RF: 0 Discharge Orders: Discharge Order (Routine); Ordered 06/27/20 Ordered By: Viviana Porter Diet: advance to usual diet Activity on Discharge: No heavy lifting Stand Alone Forms: Patient Portal Discharge page, Work/School Release Activity Restrictions/Additional Instructions: If the incision area is tender, you may apply an ice pack for short intervals (No more than 20 minutes on, followed by at least 20 minutes off). Do not apply heat. Do not use creams, lotions, or topical antibiotics unless instructed to do so by your surgeon. These can cause infection or allergic reaction. Ok to shower. No tub bath or swimming. No heavy lifting over 10lbs x 4 weeks. Follow up with Dr. Corbett in office in 2 weeks. Call Your Doctor If: -Your temperature exceeds 101.5? F -You experience excessive pain or swelling -You have an unexpected reaction to medication -You have excessive bleeding -You experience continued vomiting/nausea -Your incision begins to separate -Your incision shows signs of infection such as increased redness, swelling, excessive pain, drainage (light blood or clear fluid is normal) or heat Visit Report Forms: Patient Portal Discharge page Care Plan Goals: return to baseline health and activity following recovery period Health Concerns: Acute cholecystitis s/p laparoscopic cholecystectomy Plan of Treatment: Discharge to home, f/u in office
--- NOTE | 2020-06-27 15:38 | MHC.CM.PN ---
Patient has been medically cleared for dc to home, no services.
== END 2020-06-27 18:30 | disposition home or self-care (01) | DRG 263 ==
LOC: HO.ED 17:20 → HO.EDOVER 18:04 → HO.S3 22:09
PROVIDERS: Physician Assistant; Admitting Provider Surgery; Emergency Provider Emergency Medicine; Visit Provider Surgery
PROC: 0FT44ZZ Resection of Gallbladder, Percutaneous Endoscopic Approach (ICD-10-PCS; CPT 47562; principal; 2020-06-27 10:30)
DX: K81.0 Acute cholecystitis (principal); F17.210 Nicotine dependence, cigarettes, uncomplicated; Z20.822 Contact with and (suspected) exposure to COVID-19; Z71.6 Tobacco abuse counseling; Z88.5 Allergy status to narcotic agent; Z88.6 Allergy status to analgesic agent
CPT/HCPCS: 47562; 36415; 76705; 78226; 80048; 80076; 81003; 83605; 83690; 83735; 85025; 86850; 86900; 86901; 87040; 87635; 88304; 96361; 96374; 96375; 99284; 99285; A9537; J1100; J1170; J1885; J2250; J2405; J2543; J3010

== ENCOUNTER 2020-06-27 22:44 | Emergency (ER) | payer MEDICAID, SELFPAY ==
[2020-06-27 22:50] VITALS: BP 129/79; PULSE 119; RESP 24; TEMP 37.4; O2SAT 94; BMI 38.4
--- NOTE | 2020-06-28 00:08 | ED_ITS ---
HPI - Abdominal Pain General Chief Complaint: Abdominal Pain Stated Complaint: pain Source: patient Mode of arrival: ambulatory Limitations: no limitations History of Present Illness HPI narrative: 30-year-old male presents with abdominal pain after laparoscopic cholecystectomy. Patient was unable to obtain his pain medications from the [facility] that Dr. Carlos Sahu scribed because the pharmacy did not carry the medication in stock. He states being 10/10 pain, but does not report any other symptoms. He denies fevers, chills, nausea, vomiting, chest pain or pressure, palpitations, and edema. MD elicited complaint: abdominal pain Pertinent past history: other (Status post cholecystectomy on 06/27/2020) Pain Consistency: constant Location: diffuse Severity: severe Pain scale (0-10): 10 Quality: aching Exacerbating factors: eating, bowel movement and movement Relieving factors: nothing Context: recent surgery/procedure Associated symptoms: denies other symptoms Related Data Previous Rx's Medication Instructions Recorded docusate sodium [Colace] 100 mg PO BID PRN #30 cap 06/27/20 oxycodone 5 mg PO Q4H PRN #24 tab 06/27/20 oxycodone 5 mg PO Q6H PRN #24 tab 06/28/20 Allergies Allergy/AdvReac Type Severity Reaction Status Date / Time aspirin [ASPIRIN] Allergy Unknown STOMACH Verified 06/27/20 09:28 UPSET morphine [MORPHINE] Allergy Unknown RASH Verified 06/27/20 09:28 Review of Systems Review of Systems Constitutional: No Fever, No Chills ENT/Mouth: No sore throat Eyes: No Eye Pain, No Swelling, No Redness Cardiovascular: No Chest Pain, No SOB Respiratory: No Cough, No Sputum, No Wheezing Gastrointestinal: No Nausea, no Vomiting, No Diarrhea, positive abdominal pain Genitourinary: No Dysuria, no urinary frequency, no Hematuria, no Flank Pain, no hesitancy Musculoskeletal: No joint pain, No Myalgias Skin: No Skin Lesions, No rash Neuro: No Weakness, No Numbness, No Headache Psych: No Anxiety/Panic, No Depression Heme/Lymph: No Bruising, No Lymphadenopathy Endocrine: No Polyuria, No Polydipsia Yes all other systems are reviewed and are negative Physical Exam Vital Signs: Vital Signs: Last Vital Signs Temp 99.3 F 06/27/20 22:50 Pulse 119 H 06/27/20 22:50 Resp 24 H 06/27/20 22:50 BP 129/79 06/27/20 22:50 Pulse Ox 94 06/27/20 22:50 Body Mass Index 38.4 Appearance: Alert. Oriented X3. Moderate distress. Eyes: Pupils equal, round and reactive to light. ENT: Pharynx normal. Neck: Normal inspection. Neck supple. CVS: Normal heart rate and rhythm. Pulses normal. Respiratory: No respiratory distress. Breath sounds normal. Abdomen: Soft and nontender. Laparoscopic surgical incisions intact, no present drainage noted, abdomen diffusely tender secondary to cholecystectomy Skin: Skin warm and dry. Normal skin color. Normal skin turgor. Extremities: No lower extremity edema. Neuro: No motor deficit. No sensory deficit. Course Course Course Narrative: 30-year-old male presents for pain management after cho lecystectomy. Was unable to obtain his pain medications at the [facility] that his surgeon prescribed medications to because the location did not have the medication on hand. Patient was medicated for pain with 1 mg of IM Dilaudid and 10 mg of p.o. oxycodone. Prescription sent to [facility], message left on answering service for [facility] on [facility] cancel the prescription sent by Dr. Gonzalez. Patient verbalized understanding of and agrees to plan of care discharge home. MDM - Abdominal Pain Differential Diagnosis Differential diagnosis: Likely abdominal pain Differential diagnosis narrative:: Status post cholecystectomy surgical pain, medication management Medical Records Attestation: I reviewed the patient's medical records. Lab Data Attestation: I reviewed the patient's lab results. Discharge Plan Discharge Clinical Impression: Acute cholecystitis, S/P laparoscopic cholecystectomy Patient Disposition: Home, Self-Care Instructions: Laparoscopic Cholecystectomy (DC) Additional Instructions: You were evaluated for pain. Sent in a new prescription to [facility]. Oxycodone is a narcotic and has high risk for addiction and abuse. This medication is very dangerous do not drive or operate machinery while taking this medication. This medication is constipating. Please use Colace or and MiraLax to help soften. Thank you for choosing this emergency department for evaluation. Please follow-up with primary care physician as needed. Return to the emergency department for any new, concerning, or worsening symptoms. Prescriptions: New oxycodone 5 mg tablet 5 mg PO Q6H PRN (Reason: pain) Qty: 24 RF: 0 No Action oxycodone 5 mg tablet 5 mg PO Q4H PRN (Reason: pain) Qty: 24 RF: 0 docusate sodium [Colace] 100 mg capsule 100 mg PO BID PRN (Reason: constipation) Qty: 30 RF: 0 Interventions: ED Discharge Assessment Last Done: 06/28/20 00:43 Discharge Date/Time: 06/28/20 00:45 [facility] Past Medical History Attestation statement: The following information was validated with the patient. Source: old records reviewed Medical History Cholelithiasis HTN (hypertension) Obesity Surgical History No pertinent past surgical history Family History Family History Mother History of cholecystectomy Father No problems noted. Brother No problems noted. Brother No problems noted. Sister No problems noted. Sister No problems noted. Daughter No problems noted. Social History Social History Household Members: Family Housing: House Alcohol intake: never Smoking Status: Current every day smoker Tobacco Type: Cigarette Packs Per Day: 0.5 Cigarettes Per Day: 10.0 Use of substances other than those prescribed or required for medical reasons: No Any prior treatment program specific to substance use: No Advance Directives: No Advance Directives Information Provided: No service: No Current occupational status: unemployed
[2020-06-28] MEDS: oxyCODONE HCl Immed Release 5 MG TABLET PO ×2 (00:38)
[2020-06-28] MEDS: HYDROmorphone HCl 2 MG/ML VIAL 1 MG IM (00:38)
== END 2020-06-28 00:45 | disposition home or self-care (01) ==
PROVIDERS: Emergency Provider Emergency Medicine
DX: G89.18 Other acute postprocedural pain (principal); Z90.49 Acquired absence of other specified parts of digestive tract
CPT/HCPCS: 96372; 99284; J1170

== ENCOUNTER 2021-10-16 06:12 | Emergency (ER) | payer MEDICAID, SELFPAY ==
--- NOTE | 2021-10-16 | ECG_ITS ---
Test Reason : tachycardia Blood Pressure : / mmHG Vent. Rate : 099 BPM Atrial Rate : 099 BPM P-R Int : 152 ms QRS Dur : 090 ms QT Int : 346 ms P-R-T Axes : 016 -06 018 degrees QTc Int : 444 ms Normal sinus rhythm Normal ECG When compared with ECG of 06-FEB-2018 18:20, No significant change was found Referred By: Cassi Cedeno Electronically Signed By:Mark Vazquez
[2021-10-16 06:25] VITALS: BP 132/76; PULSE 120; RESP 18; TEMP 37; O2SAT 94; BMI 40.7
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
--- NOTE | 2021-10-16 07:10 | PC.NURSE ---
multiple attempts to obtain a ekg but pt keeps moving around and yelling unable to capture a wave form pt is forcing a cough and spitting, lac on the right eye lid, and states that having chest pain.
[2021-10-16 07:36] LABS: MANUAL DIFF FLAG NO
[2021-10-16] MEDS: 0.9 % Sodium Chloride 1,000 ML 999 ML IV (07:41)
[2021-10-16 07:43] VITALS: PULSE 111; RESP 18; O2SAT 98
[2021-10-16 07:44] LABS: Basophils Percent Auto 0.2 % (0-2); Eosinophils Percent Auto 0.3 % (0-4); Hematocrit 45.2 % (42.0-52.0); Hemoglobin 14.5 g/dl (14.0-18.0); Imm Gran Abs Auto 0.13 X10*3/uL (0.00-0.03); Lymphocytes Absolute Auto 1.2 X10*3/uL (1.2-4.9); Lymphocytes Percent Auto 9.1 % (20-40); Mean Corpuscular HGB Conc 32.1 g/dl (31.0-36.0); Mean Corpuscular Hemoglobin 28.2 pg (27.0-33.0); Mean Corpuscular Volume 87.8 fL (80.0-98.0); Mean Platelet Volume 11.1 fL (9.4-12.4); Monocytes Absolute Auto 0.7 X10*3/uL (0.1-1.2); Monocytes Percent Auto 5.4 % (2-11); Neutrophils Absolute Auto 10.8 x10*3/uL (2.0-8.3); Platelet Count 279 X10*3/uL (160-400); Red Blood Count 5.15 X10*6/uL (4.60-5.80); Red Cell Distribution Width 13.6 % (11.0-16.0); White Blood Count 12.8 X10*3/uL (4.8-10.8)
--- NOTE | 2021-10-16 07:45 | PC.NURSE ---
pt is currently much calmer, denies pain , no coughing, vs stable
[2021-10-16 08:01] LABS: Alanine Aminotransferase 94 U/L (0-40); Albumin Level 4.3 g/dL (3.5-5.0); Alkaline Phosphatase 83 U/L (39-117); Anion Gap 13 (12-20); Aspartate Amino Transferase 71 U/L (5-37); Bilirubin Direct 0.2 mg/dL (0.0-0.5); Bilirubin Total 0.3 mg/dL (0.0-1.0); Blood Urea Nitrogen 19 mg/dL (9-16); Calcium 9.6 mg/dL (8.4-10.2); Carbon Dioxide 25 mmol/L (22-29); Chloride 106 mmol/L (96-108); Creatinine Clr Calc Pharmacy 111.2; Estimated Glomerular Filt Rate > 60; Glucose Random 110 mg/dL (60-115); Lipase 23 U/L (8-78); Potassium 3.9 mmol/L (3.3-5.1); Sodium 140 mmol/L (135-145); Total Protein 7.5 g/dL (6.5-8.0)
[2021-10-16 08:07] LABS: B Type Natriuretic Peptide < 10 pg/mL (<100); Troponin-I High Sensitivity 8.2 ng/L (<3.5-35.0)
[2021-10-16 08:28] LABS: Ethanol < 10 mg/dL
[2021-10-16 09:08] LABS: Appearance Urine CLEAR; Color Urine YELLOW; Glucose Urine UA NEG (NEG); Leukocyte Esterase Urine 1+ (NEG); Nitrite Urine NEG (NEG); Specific Gravity - Urine 1.025 (1.005-1.025); UACC Culture Trigger YES; Urine Blood 2+ (NEG); Urine Ketones NEG (NEG); Urine Protein 1+ MG/DL (NEG-TRACE)
[2021-10-16 09:19] LABS: Mucus Urine TRACE /LPF; Squamous Epithelial Cell Urine 2+ /LPF
[2021-10-16 09:26] LABS: Amphetamine Screen Urine Not Detected (Not Detect); Barbiturates, Urine Not Detected (Not Detect); Benzodiazepines Screen Urine Not Detected (Not Detect); Cannabinoid Screen Urine POSITIVE (Not Detect); Cocaine Screen Urine POSITIVE (Not Detect); Fentanyl, urine POSITIVE (Not Detect); Opiate Screen Urine Not Detected (Not Detect); Phencyclidine Screen Urine POSITIVE (Not Detect)
[2021-10-16 09:31] VITALS: BP 171/85; PULSE 90; RESP 18; O2SAT 99
--- NOTE | 2021-10-16 11:00 | PC.NURSE ---
pt is currently asleep, respirations even and unlabored.
[2021-10-16 11:05] VITALS: BP 161/77; PULSE 96; RESP 16; O2SAT 100
[2021-10-16] MEDS: Lidocaine HCl 2 % MPF 5 ML VIAL SUBCUT (12:30)
--- NOTE | 2021-10-16 12:49 | PC.NURSE ---
Pt alert and oriented x4, calm and cooperative with staff now. Pt currently being seen by consult MD for right upper eye laceration. Pt having laceration stitched up now, pt tolerating well. PD remains at bedside now. IV in place continues to infuse IV fluids per orders, pt noted to be bending arm and IV fluids infusing slow. Pt resting in stretcher.
[2021-10-16 13:30] VITALS: BP 142/83; PULSE 77; RESP 18; TEMP 36.6; O2SAT 98
[2021-10-16] MEDS: Erythromycin Base 0.5% Oph Oin 1 GM TUBE 1 CM EYE-RIGHT (13:56)
== END 2021-10-16 14:22 | disposition home or self-care (01) ==
PROVIDERS: Emergency Provider Emergency Medicine
DX: F19.10 Other psychoactive substance abuse, uncomplicated (principal); S01.111A Laceration without foreign body of right eyelid and periocular area, initial encounter; Y35.811A Legal intervention involving manhandling, law enforcement official injured, initial encounter; R07.9 Chest pain, unspecified; R10.9 Unspecified abdominal pain; R05.9 Cough, unspecified; I10 Essential (primary) hypertension; F17.200 Nicotine dependence, unspecified, uncomplicated; Y93.02 Activity, running; Y92.85 Railroad track as the place of occurrence of the external cause; Y99.8 Other external cause status; Z79.899 Other long term (current) drug therapy
CPT/HCPCS: 12011; 36415; 80048; 80076; 80307; 81001; 82077; 83690; 83880; 84484; 85025; 87086; 93005; 96360; 99284

== ENCOUNTER 2023-06-11 11:56 | Outpatient (REF) | payer MEDICAID, SELFPAY ==
[2023-06-11 13:29] LABS: MANUAL DIFF FLAG NO
[2023-06-11 13:46] LABS: Basophils Percent Auto 0.4 % (0-2); Eosinophils Absolute Auto 0.1 X10*3/uL (0.0-0.4); Eosinophils Percent Auto 0.9 % (0-4); Hematocrit 44.8 % (42.0-52.0); Hemoglobin 14.7 g/dl (14.0-18.0); Imm Gran Abs Auto 0.02 X10*3/uL (0.00-0.03); Imm Gran Pct Auto 0.3 % (0.0-0.4); Lymphocytes Absolute Auto 1.6 X10*3/uL (1.2-4.9); Lymphocytes Percent Auto 21.9 % (20-40); Mean Corpuscular HGB Conc 32.8 g/dl (31.0-36.0); Mean Corpuscular Hemoglobin 28.4 pg (27.0-33.0); Mean Corpuscular Volume 86.5 fL (80.0-98.0); Mean Platelet Volume 12.1 fL (9.4-12.4); Monocytes Absolute Auto 0.7 X10*3/uL (0.1-1.2); Monocytes Percent Auto 8.9 % (2-11); Neutrophils Percent Auto 67.6 % (45-73); Platelet Count 307 X10*3/uL (160-400); Red Blood Count 5.18 X10*6/uL (4.60-5.80); Red Cell Distribution Width 14.5 % (11.0-16.0); White Blood Count 7.4 X10*3/uL (4.8-10.8)
[2023-06-11 14:47] LABS: Alanine Aminotransferase 37 U/L (0-40); Albumin Level 4.5 g/dL (3.5-5.0); Alkaline Phosphatase 88 U/L (39-117); Anion Gap 9 (12-20); Aspartate Amino Transferase 24 U/L (5-37); Bilirubin Total 0.5 mg/dL (0.0-1.0); Blood Urea Nitrogen 10 mg/dL (9-16); Calcium 9.5 mg/dL (8.4-10.2); Carbon Dioxide 28 mmol/L (22-29); Chloride 107 mmol/L (96-108); Estimated Glomerular Filt Rate > 60; Glucose Random 84 mg/dL (60-115); Potassium 4.2 mmol/L (3.3-5.1); Sodium 140 mmol/L (135-145); Total Protein 8.1 g/dL (6.5-8.0)
== END 2023-06-11 11:57 | disposition home or self-care (01) ==
LOC: HO.HHCL 11:56
PROVIDERS: Visit Provider Student in an Organized Health Care Education/Training Program
DX: R10.11 Right upper quadrant pain (principal)
CPT/HCPCS: 36415; 80053; 85025

== ENCOUNTER 2023-06-22 21:25 | Emergency (ER) | payer MEDICAID, SELFPAY ==
--- NOTE | 2023-06-22 | ECG_ITS ---
Test Reason : COUGH/CP Blood Pressure : / mmHG Vent. Rate : 117 BPM Atrial Rate : 117 BPM P-R Int : 130 ms QRS Dur : 082 ms QT Int : 290 ms P-R-T Axes : 012 003 026 degrees QTc Int : 404 ms Sinus tachycardia Otherwise normal ECG No previous ECGs available Referred By: Generic ED Physician Electronically Signed By:BILL WILSON MD
--- NOTE | ~2023-06-22 | XR_ITS ---
EXAMINATION: XR CHEST 2 VIEWS CLINICAL INFORMATION: Shortness of breath. COMPARISON: Chest radiographs dated 02/06/2018. TECHNIQUE: Frontal and lateral views of the chest were obtained. FINDINGS: The heart, great vessels, pulmonary vasculature and mediastinum are normal. The lungs show no focal infiltrate, effusion or pneumothorax. There is no acute osseous abnormality. XR/XR chest 1V IMPRESSION: No active cardiopulmonary disease.
[2023-06-22 21:52] VITALS: BP 138/85; PULSE 117; RESP 22; TEMP 37.2; O2SAT 95; BMI 37.4
--- NOTE | 2023-06-22 21:52 | MHC.EDTECH ---
Patient brought into triage area,EKG taken per order and signed by provider, covid,and flu swabs obtained and sent to lab.
[2023-06-22 22:17] LABS: COVID-19 Test Negative (Negative); IDNOW Serial# 08D9AD1C
[2023-06-22 22:18] LABS: IDNOW Serial# 152EDE1D; Influenza A Positive (Negative); Influenza B2 Negative (Negative)
== END 2023-06-23 01:47 | disposition left against medical advice (07) ==
PROVIDERS: Emergency Provider Emergency Medicine
DX: J10.1 Influenza due to other identified influenza virus with other respiratory manifestations (principal); R05.9 Cough, unspecified
CPT/HCPCS: 71045; 87502; 87635; 93005; 99283

== ENCOUNTER → 2023-06-22 21:46 | Outpatient (BNV) | payer MEDICAID, SELFPAY | PROVIDERS: Emergency Provider Emergency Medicine; Visit Provider Internal Medicine Cardiovascular Disease | DX: R07.9 Chest pain, unspecified (principal) | CPT/HCPCS: 93010 ==

== ENCOUNTER 2023-06-27 07:03 | Emergency (ER) | payer MEDICAID, SELFPAY ==
[2023-06-27 07:16] VITALS: BP 146/91; PULSE 82; RESP 18; TEMP 36.7; O2SAT 98; BMI 40.2
--- NOTE | 2023-06-27 07:21 | ECG_ITS ---
Test Reason : dizziness Blood Pressure : / mmHG Vent. Rate : 082 BPM Atrial Rate : 082 BPM P-R Int : 134 ms QRS Dur : 094 ms QT Int : 374 ms P-R-T Axes : 005 000 015 degrees QTc Int : 436 ms Normal sinus rhythm Minimal voltage criteria for LVH, may be normal variant ( R in aVL ) Borderline ECG When compared with ECG of 22-JUN-2023 21:46, No significant change was found Referred By: Samantha Rasmussen Electronically Signed By:BILL WILSON MD
[2023-06-27 07:54] LABS: MANUAL DIFF FLAG NO
[2023-06-27 08:09] LABS: COVID-19 Test Negative (Negative); IDNOW Serial# 08D9AD1C
[2023-06-27 08:13] LABS: IDNOW Serial# 152EDE1D; Influenza A Positive (Negative); Influenza B2 Negative (Negative)
[2023-06-27 08:15] LABS: Basophils Percent Auto 0.1 % (0-2); Eosinophils Percent Auto 0.4 % (0-4); Hematocrit 41.3 % (42.0-52.0); Hemoglobin 13.5 g/dl (14.0-18.0); Imm Gran Abs Auto 0.02 X10*3/uL (0.00-0.03); Imm Gran Pct Auto 0.3 % (0.0-0.4); Lymphocytes Percent Auto 27.4 % (20-40); Mean Corpuscular HGB Conc 32.7 g/dl (31.0-36.0); Mean Corpuscular Hemoglobin 28.2 pg (27.0-33.0); Mean Corpuscular Volume 86.2 fL (80.0-98.0); Mean Platelet Volume 10.8 fL (9.4-12.4); Monocytes Absolute Auto 0.5 X10*3/uL (0.1-1.2); Monocytes Percent Auto 6.3 % (2-11); Neutrophils Absolute Auto 4.8 x10*3/uL (2.0-8.3); Neutrophils Percent Auto 65.5 % (45-73); Platelet Count 243 X10*3/uL (160-400); Red Blood Count 4.79 X10*6/uL (4.60-5.80); Red Cell Distribution Width 14.1 % (11.0-16.0); White Blood Count 7.3 X10*3/uL (4.8-10.8)
[2023-06-27 08:21] LABS: Alanine Aminotransferase 38 U/L (0-40); Albumin Level 4.1 g/dL (3.5-5.0); Alkaline Phosphatase 77 U/L (39-117); Anion Gap 13 (12-20); Aspartate Amino Transferase 32 U/L (5-37); Bilirubin Total 0.3 mg/dL (0.0-1.0); Blood Urea Nitrogen 13 mg/dL (9-16); Calcium 8.6 mg/dL (8.4-10.2); Carbon Dioxide 27 mmol/L (22-29); Chloride 103 mmol/L (96-108); Creatinine Clr Calc Pharmacy 149.7; Estimated Glomerular Filt Rate > 60; Glucose Random 101 mg/dL (60-115); Magnesium 2.3 mg/dL (1.6-2.6); Potassium 3.7 mmol/L (3.3-5.1); Sodium 139 mmol/L (135-145); Total Protein 7.5 g/dL (6.5-8.0)
[2023-06-27 08:38] LABS: Troponin-I High Sensitivity < 2.7 ng/L (<3.5-35.0)
--- NOTE | 2023-06-27 08:40 | ED_ITS ---
HPI - General Adult General Chief complaint: Dizziness Stated complaint: dizziness Time Seen by Provider: 06/27/23 07:08 Source: patient Mode of arrival: EMS Limitations: no limitations History of Present Illness HPI narrative: Patient is a 33-year-old male who presents emergency department via EMS for evaluation. He reports approximately 30 minutes prior to arrival he experienced dizziness which he reports as an episode of blurred vision and shortness of breath that lasted a few minutes before self-resolving. He states he was very anxious about this as he is currently being monitored for elevated blood pressure readings by his primary care provider. He reports typically 150s systolic blood pressure. He does admit that a couple hours prior to the symptoms he snorted some cocaine, otherwise denies any Drug or alcohol usage. He has no symptoms at this time and feels at baseline. Related Data Previous Rx's Medication Instructions Recorded docusate sodium 100 mg capsule 100 mg PO BID PRN constipation #30 06/27/20 (Colace) caps oxycodone 5 mg tablet 5 mg PO Q4H PRN pain #24 tabs 06/27/20 oxycodone 5 mg tablet 5 mg PO Q6H PRN pain #24 tabs 06/28/20 erythromycin 5 mg/gram (0.5 %) eye 0.5 inch ophthalmic (eye) TID #3.5 10/16/21 ointment grams Allergies Allergy/AdvReac Type Severity Reaction Status Date / Time aspirin [ASPIRIN] Allergy Unknown STOMACH Verified 06/27/23 07:21 UPSET morphine [MORPHINE] Allergy Unknown RASH Verified 06/27/23 07:21 Review of Systems 2 Review of Systems: Yes all other systems are reviewed and are negative [facility] Past Medical History Attestation statement: The following information was validated with the patient. Source: old records reviewed Medical History HTN (hypertension) Cholelithiasis Obesity Surgical History No pertinent past surgical history Family History Family History Mother History of cholecystectomy Father No problems noted. Brother No problems noted. Brother No problems noted. Sister No problems noted. Sister No problems noted. Daughter No problems noted. Social History Social History Household Members: Family Housing: House Alcohol intake: never Patient Tobacco Use Status: Current everyday Tobacco user Cigarette Packs Per Day: 0.5 Cigarettes Per Day: 10.0 Smoked in Last 30 Days: Yes Use of substances other than those prescribed or required for medical reasons: Yes Substance Use Type: Crack/Cocaine Substance Use Frequency: Occasionally Last Used Substance: Just Prior to Admission Advance Directives: No Advance Directives Information Provided: No service: No Current occupational status: unemployed Physical Exam ED Vital Signs: Vital Signs - 24 hr 06/27/23 07:16 Temperature 98.1 F Pulse Rate 82 Respiratory Rate 18 Blood Pressure 146/91 H Pulse Oximetry 98 Oxygen Delivery Method Room Air BMI result Body Mass Index 40.2 Appearance: Alert.?Oriented to person, place and time. No acute distress.?Normal affect. Eyes: Pupils equal, round and reactive to light.? ENT: Pharynx normal.?? Neck: Normal inspection.? Neck supple.?? CVS: Heart sounds normal. Normal heart rate and rhythm.? Pulses normal.?? Respiratory: No respiratory distress.? Lung sounds clear to auscultation bilaterally?? Abdomen: Soft and non-tender. Normoactive bowel sounds. No pulsatile mass.?? Skin: Skin warm and dry.? Normal skin color.? Normal skin turgor.?? Extremities: No lower extremity edema.? No calf ttp? Neuro: Moves all extremities spontaneously. Sensation intact bilaterally. CN II- XII intact. No focal neuro deficits. Ambulates with normal steady gait. Medical Decision Making Medical Decision Making MDM Narrative: Patient is a 33-year-old male with past medical history of hypertension, cholelithiasis who presents emergency department for evaluation of let them know brief episode of shortness of breath and vision changes lasting a few minutes which self-resolved. Physical examination is benign at this time. Will obtain CBC to evaluate for leukocytosis/ anemia, CMP and lipase to evaluate for abnormal electrolytes /abnormal renal function/ abnormal hepatic/biliary function, EKG and troponin to evaluate for ischemia/ACS. Influenza a testing positive, of note patient presented to the emergency department 06/22/2023, he is evaluated in triage for URI symptoms coughing, nasal congestion, influenza testing was positive at that time. Upon re-evaluation he now admits that he is still experiencing a cough. Most likely the etiology for his symptoms. Has remained asymptomatic at this time stable for discharge home outpatient follow-up with primary care provider. Differential Diagnosis Differential Diagnoses: The differential diagnosis associated with the presentation includes (See narrative above) Admission/Observation Consideration of admission/observation: Escalation of care including admission/observation considered (See narrative above in course narrative for further detail) Lab Data MDM Lab Attestation statement: I reviewed the patient's lab results. CBC is without leukocytosis, mild normocytic anemia that does not meet transfusion criteria. CMP unremarkable. High sensitive troponin below detectable limits. COVID-19 testing negative. 06/27/23 07:48 06/27/23 07:48 Labs: Lab Results 06/27/23 Range/Units 07:48 WBC 7.3 (4.8-10.8) X10*3/uL RBC 4.79 (4.60-5.80) X10*6/uL Hgb 13.5 L (14.0-18.0) g/dl Hct 41.3 L (42.0-52.0) % MCV 86.2 (80.0-98.0) fL MCH 28.2 (27.0-33.0) pg MCHC 32.7 (31.0-36.0) g/dl RDW 14.1 (11.0-16.0) % Plt Count 243 (160-400) X10*3/uL MPV 10.8 (9.4-12.4) fL Immature Gran % (Auto) 0.3 (0.0-0.4) % Neut % (Auto) 65.5 (45-73) % Lymph % (Auto) 27.4 (20-40) % [place] % (Auto) 6.3 (2-11) % Eos % (Auto) 0.4 (0-4) % Baso % (Auto) 0.1 (0-2) % Lymph # (Auto) 2.0 (1.2-4.9) X10*3/uL [place] # (Auto) 0.5 (0.1-1.2) X10*3/uL Eos # (Auto) 0.0 (0.0-0.4) X10*3/uL Baso # (Auto) 0.0 (0.0-0.2) X10*3/uL Abs Immat Gran (auto) 0.02 (0.00-0.03) X10*3/uL Absolute Neuts (auto) 4.8 (2.0-8.3) x10*3/uL Absolute Nucleated RBC 0.000 (0.0-0.012) X10*3/uL Nucleated RBC % (auto) 0.0 (0.0-0.2) /100WBC Sodium 139 (135-145) mmol/L Potassium 3.7 (3.3-5.1) mmol/L Chloride 103 (96-108) mmol/L Carbon Dioxide 27 (22-29) mmol/L Anion Gap 13 (12-20) BUN 13 (9-16) mg/dL Creatinine 0.92 (0.5-1.4) mg/dL Estim Creat Clear Calc 149.7 Estimated GFR > 60 Random Glucose 101 (60-115) mg/dL Calcium 8.6 D (8.4-10.2) mg/dL Magnesium 2.3 (1.6-2.6) mg/dL Total Bilirubin 0.3 (0.0-1.0) mg/dL AST 32 (5-37) U/L ALT 38 (0-40) U/L Alkaline Phosphatase 77 (39-117) U/L Troponin I High Sens < 2.7 (<3.5-35.0) ng/L Total Protein 7.5 (6.5-8.0) g/dL Albumin 4.1 (3.5-5.0) g/dL COVID-19 (JEWELS) Negative (Negative) COVID-19 Clin Com See Note Influenza Type A (TANISHA) Positive A (Negative) Influenza Type B (TANISHA) Negative (Negative) Influenza A & B Note See Note Independent Interpretation I performed an independent interpretation of an: EKG Interpretation: Rate:82 Rhythm:? Normal sinus rhythm [place]:? Normal Normal P waves.? Normal LYUDMILA.?? Normal QRS complex.?? ST T wave :??No ST elevation, no ST depression, no T-wave inversions qTC:[id number] The study has been interpreted contemporaneously by me. External Record Review External record reviewed: Outpatient record Discharge Plan Discharge Clinical Impression: Influenza A Patient Disposition: Home, Self-Care Instructions: Influenza (ED) Additional Instructions: Be sure to rest, stay well hydrated drinking plenty of fluids, eat small frequent meals. Tylenol/ibuprofen can be used as needed for fever/pain. [id number] cold medications may be helpful as well for symptoms. Saline nasal spray, humidifier may be helpful for nasal congestion. You may return to the emergency department with any new or worsening symptoms or concerns. Follow-up with your primary care provider as needed. Prescriptions: No Action oxycodone 5 mg tablet 5 mg PO Q4H PRN (Reason: pain) Qty: 24 0RF Rx Instructions: Take 1-2 tablets every 4-6 hours as needed for pain. docusate sodium [Colace] 100 mg capsule 100 mg PO BID PRN (Reason: constipation) Qty: 30 0RF oxycodone 5 mg tablet 5 mg PO Q6H PRN (Reason: pain) Qty: 24 0RF erythromycin 5 mg/gram (0.5 %) ointment 0.5 inch ophthalmic (eye) TID Qty: 3.5 0RF Rx Instructions: apply to the right upper eyelid 3 times a day for 5 days. Referrals: Physician,Unknown J [Primary Care Provider] -
--- NOTE | 2023-06-27 08:52 | PC.NURSE ---
PT ARRIVES FROM HOME C/O AN EPISODE OF DIZZINESS AND SOB 30 M[employer], NOW RESOLVED. REPORTS HAVING TAKEN JULIO AT 0300H. NO OTHER COMPLAINTS. WELL APPEARING, IN NAD, CALM, COOPERATIVE, RESP EVEN NONLABOURED. PLACED ON PATROLLER FOR OBS.
== END 2023-06-27 09:43 | disposition home or self-care (01) ==
PROVIDERS: Nurse Practitioner Family; Emergency Provider Student in an Organized Health Care Education/Training Program
DX: J10.1 Influenza due to other identified influenza virus with other respiratory manifestations (principal); R42 Dizziness and giddiness; H53.8 Other visual disturbances; F41.1 Generalized anxiety disorder; F43.0 Acute stress reaction; F14.10 Cocaine abuse, uncomplicated; Z11.52 Encounter for screening for COVID-19; Z79.899 Other long term (current) drug therapy
CPT/HCPCS: 36415; 80053; 83735; 84484; 85025; 87502; 87635; 93005; 99283; 99284

== ENCOUNTER → 2023-06-27 07:21 | Outpatient (BNV) | payer MEDICAID, SELFPAY | PROVIDERS: Emergency Provider Student in an Organized Health Care Education/Training Program; Visit Provider Internal Medicine Cardiovascular Disease | DX: R42 Dizziness and giddiness (principal) | CPT/HCPCS: 93010 ==

== ENCOUNTER 2023-06-27 22:00 | Emergency (ER) | payer MEDICAID, SELFPAY ==
--- NOTE | 2023-06-27 | ECG_ITS ---
Test Reason : DIZZYNESS Blood Pressure : / mmHG Vent. Rate : 083 BPM Atrial Rate : 083 BPM P-R Int : 130 ms QRS Dur : 088 ms QT Int : 348 ms P-R-T Axes : 008 015 025 degrees QTc Int : 408 ms Normal sinus rhythm with sinus arrhythmia Normal ECG When compared with ECG of 27-JUN-2023 07:32, No significant change was found Referred By: Generic ED Physician Electronically Signed By:ROSI GONZALEZ
[2023-06-27 22:10] VITALS: BP 128/68; PULSE 82; RESP 19; TEMP 36.9; O2SAT 97; BMI 39.5
[2023-06-27 22:50] LABS: MANUAL DIFF FLAG NO
[2023-06-27 22:58] LABS: Basophils Percent Auto 0.3 % (0-2); Eosinophils Absolute Auto 0.1 X10*3/uL (0.0-0.4); Eosinophils Percent Auto 1.3 % (0-4); Hematocrit 40.7 % (42.0-52.0); Hemoglobin 13.4 g/dl (14.0-18.0); Imm Gran Abs Auto 0.02 X10*3/uL (0.00-0.03); Imm Gran Pct Auto 0.3 % (0.0-0.4); Lymphocytes Absolute Auto 2.5 X10*3/uL (1.2-4.9); Lymphocytes Percent Auto 37.1 % (20-40); Mean Corpuscular HGB Conc 32.9 g/dl (31.0-36.0); Mean Corpuscular Hemoglobin 28.1 pg (27.0-33.0); Mean Corpuscular Volume 85.3 fL (80.0-98.0); Monocytes Absolute Auto 0.5 X10*3/uL (0.1-1.2); Neutrophils Absolute Auto 3.6 x10*3/uL (2.0-8.3); Platelet Count 227 X10*3/uL (160-400); Red Blood Count 4.77 X10*6/uL (4.60-5.80); Red Cell Distribution Width 14.2 % (11.0-16.0); White Blood Count 6.7 X10*3/uL (4.8-10.8)
[2023-06-27 23:10] LABS: Alanine Aminotransferase 36 U/L (0-40); Alkaline Phosphatase 73 U/L (39-117); Anion Gap 11 (12-20); Aspartate Amino Transferase 26 U/L (5-37); Bilirubin Direct < 0.2 mg/dL (0.0-0.5); Bilirubin Total 0.2 mg/dL (0.0-1.0); Blood Urea Nitrogen 10 mg/dL (9-16); Carbon Dioxide 29 mmol/L (22-29); Chloride 105 mmol/L (96-108); Creatinine Clr Calc Pharmacy 115.6; Estimated Glomerular Filt Rate > 60; Glucose Random 118 mg/dL (60-115); Lipase 31 U/L (8-78); Potassium 4.2 mmol/L (3.3-5.1); Sodium 141 mmol/L (135-145); Total Protein 7.2 g/dL (6.5-8.0)
[2023-06-27 23:18] LABS: Troponin-I High Sensitivity < 2.7 ng/L (<3.5-35.0)
== END 2023-06-28 03:35 | disposition left against medical advice (07) ==
PROVIDERS: Emergency Provider Emergency Medicine
DX: R42 Dizziness and giddiness (principal); I10 Essential (primary) hypertension; Z79.899 Other long term (current) drug therapy
CPT/HCPCS: 36415; 80048; 80076; 83690; 84484; 85025; 93005; 99283

== ENCOUNTER 2023-07-08 01:44 | Emergency (ER) | payer MEDICAID, SELFPAY ==
[2023-07-08 02:54] VITALS: BP 143/101; PULSE 91; RESP 18; TEMP 37.1; O2SAT 96; BMI 39.3
--- NOTE | 2023-07-08 03:21 | MHC.EDTECH ---
Patient brought back to triage area,labs,and a urine were obtained and sent to lab.
[2023-07-08 03:27] LABS: Basophils Percent Auto 0.3 % (0-2); Eosinophils Absolute Auto 0.1 X10*3/uL (0.0-0.4); Hematocrit 43.9 % (42.0-52.0); Hemoglobin 14.1 g/dl (14.0-18.0); Imm Gran Abs Auto 0.03 X10*3/uL (0.00-0.03); Imm Gran Pct Auto 0.3 % (0.0-0.4); Lymphocytes Percent Auto 26.6 % (20-40); MANUAL DIFF FLAG NO; Mean Corpuscular HGB Conc 32.1 g/dl (31.0-36.0); Mean Corpuscular Volume 87.1 fL (80.0-98.0); Mean Platelet Volume 10.7 fL (9.4-12.4); Monocytes Absolute Auto 0.9 X10*3/uL (0.1-1.2); Monocytes Percent Auto 8.4 % (2-11); Neutrophils Absolute Auto 7.1 x10*3/uL (2.0-8.3); Neutrophils Percent Auto 63.4 % (45-73); Platelet Count 305 X10*3/uL (160-400); Red Blood Count 5.04 X10*6/uL (4.60-5.80); Red Cell Distribution Width 14.4 % (11.0-16.0); White Blood Count 11.2 X10*3/uL (4.8-10.8)
[2023-07-08 03:28] LABS: Appearance Urine Clear; Color Urine Yellow; Glucose Urine UA Negative (Negative); Leukocyte Esterase Urine Negative (Negative); Nitrite Urine Negative (Negative); PH 6.5 (5.0-9.0); Urine Blood Negative (Negative); Urine Ketones Negative (Negative); Urine Protein Negative (Neg-Trace)
[2023-07-08 03:41] LABS: Alanine Aminotransferase 39 U/L (0-40); Albumin Level 4.2 g/dL (3.5-5.0); Alkaline Phosphatase 82 U/L (39-117); Anion Gap 13 (12-20); Aspartate Amino Transferase 25 U/L (5-37); Bilirubin Direct < 0.2 mg/dL (0.0-0.5); Bilirubin Total 0.2 mg/dL (0.0-1.0); Blood Urea Nitrogen 16 mg/dL (9-16); Calcium 9.4 mg/dL (8.4-10.2); Carbon Dioxide 25 mmol/L (22-29); Chloride 106 mmol/L (96-108); Creatinine Clr Calc Pharmacy 144.7; Estimated Glomerular Filt Rate > 60; Glucose Random 93 mg/dL (60-115); Lipase 24 U/L (8-78); Sodium 140 mmol/L (135-145); Total Protein 7.5 g/dL (6.5-8.0)
--- NOTE | 2023-07-08 04:48 | ED_ITS ---
HPI - General Adult General Chief complaint: Abdominal Pain Stated complaint: Abd pain Time Seen by Provider: 07/08/23 04:40 History of Present Illness HPI narrative: The patient is a 33-year-old male who says that he has had upper abdominal pain for a few months intermittently. It has been worse over the last 3 days and associated with nausea. He has not had any fevers. No vomiting. He has had some urinary discomfort. He has not had any diarrhea. Related Data Previous Rx's Medication Instructions Recorded docusate sodium 100 mg capsule 100 mg PO BID PRN constipation #30 06/27/20 (Colace) caps oxycodone 5 mg tablet 5 mg PO Q4H PRN pain #24 tabs 06/27/20 oxycodone 5 mg tablet 5 mg PO Q6H PRN pain #24 tabs 06/28/20 erythromycin 5 mg/gram (0.5 %) eye 0.5 inch ophthalmic (eye) TID #3.5 10/16/21 ointment grams omeprazole 40 mg capsule,delayed 40 mg PO DAILY #30 caps 07/08/23 release sucralfate 1 gram tablet 1 g PO TID PRN Upper abdominal 07/08/23 pain #60 tabs Allergies Allergy/AdvReac Type Severity Reaction Status Date / Time aspirin [ASPIRIN] Allergy Unknown STOMACH Verified 07/08/23 02:53 UPSET morphine [MORPHINE] Allergy Unknown RASH Verified 07/08/23 02:53 Review of Systems 2 Review of Systems: Yes all other systems are reviewed and are negative PMFSH Past Medical History Medical History HTN (hypertension) Cholelithiasis Obesity Surgical History No pertinent past surgical history Family History Family History Mother History of cholecystectomy Father No problems noted. Brother No problems noted. Brother No problems noted. Sister No problems noted. Sister No problems noted. Daughter No problems noted. Social History Social History Household Members: Family Housing: House Alcohol intake: never Patient Tobacco Use Status: Current everyday Tobacco user Cigarette Packs Per Day: 0.5 Cigarettes Per Day: 10.0 Substance Use Type: Crack/Cocaine Advance Directives: Yes Advance Directives on File: Yes Advance Directives Date on File: 06/26/20 service: No Current occupational status: unemployed Physical Exam ED Vital Signs: Vital Signs - 24 hr 07/08/23 02:54 Temperature 98.8 F Pulse Rate 91 Respiratory Rate 18 Blood Pressure 143/101 H Pulse Oximetry 96 Oxygen Delivery Method Room Air BMI result Body Mass Index 39.3 Const Other: The patient was asleep at the time that I entered his room. He was sleeping quite soundly and it took me some time to wake him up. He ultimately awoke to a normal mental status. He had not seemed uncomfortable until he was awake and then he grimaced and held his abdomen. HENMT Other: The face is symmetrical. ?Mucous membranes moist. Eyes Other: Pupils are round equal, conjunctivae are clear, extraocular movements intact Neck Other: Moving his neck easily Resp Effort & Inspection: normal respiratory effort Auscultation: clear to auscultation bilaterally Cardio Rate: regular rate Rhythm: regular rhythm Heart sounds: S1 normal heart sound present and S2 normal heart sound present GI Other: The abdomen is soft. There is tenderness across the upper abdomen without rebound or guarding. Lower abdomen is nontender. Skin Other: The skin is dry and unremarkable. Neuro Other: The patient was initially sleeping quite soundly and I had to make an effort to wake him up. Once awake seemed to have a normal mental status, normal speech, and seemed to be moving his extremities normally. He seems grossly neurologically intact. Extrem Other: No peripheral edema Medications Administered Discontinued Medications Generic Name Dose Route Start Last Admin Trade Name Jose Eq PRN Reason Stop Dose Admin Sucralfate 2 gm 07/08/23 04:47 07/08/23 04:55 Sucralfate Oral Suspension 1 Gm/10 Ml Oral.Susp PO 07/08/23 04:48 2 gm ONCE ONE Administration Medical Decision Making Medical Decision Making MDM Narrative: The patient is a 33-year-old who has had a cholecystectomy who presents with several days of epigastric discomfort. When I 1st went to examine him he was very soundly asleep. With some effort I was able to wake him and then he grimaced as if in discomfort and complaint of epigastric pain. His labs are quite unremarkable including his LFTs. I doubt that this is any complication of his previous cholecystectomy. No suspicion for choledocholithiasis. I think gastritis is much more likely. The patient was given a dose of sucralfate with improvement in his symptoms. I think he likely has gastritis. He will be prescribed omeprazole to be used on a daily basis and sucralfate to be used on an as-needed basis. He should follow up with his regular doctor. Lab Data 07/08/23 03:21 07/08/23 03:21 Labs: Lab Results 07/08/23 Range/Units 03:21 WBC 11.2 H (4.8-10.8) X10*3/uL RBC 5.04 (4.60-5.80) X10*6/uL Hgb 14.1 (14.0-18.0) g/dl Hct 43.9 (42.0-52.0) % MCV 87.1 (80.0-98.0) fL MCH 28.0 (27.0-33.0) pg MCHC 32.1 (31.0-36.0) g/dl RDW 14.4 (11.0-16.0) % Plt Count 305 D (160-400) X10*3/uL MPV 10.7 (9.4-12.4) fL Immature Gran % (Auto) 0.3 (0.0-0.4) % Neut % (Auto) 63.4 (45-73) % Lymph % (Auto) 26.6 (20-40) % [place] % (Auto) 8.4 (2-11) % Eos % (Auto) 1.0 (0-4) % Baso % (Auto) 0.3 (0-2) % Lymph # (Auto) 3.0 (1.2-4.9) X10*3/uL [place] # (Auto) 0.9 (0.1-1.2) X10*3/uL Eos # (Auto) 0.1 (0.0-0.4) X10*3/uL Baso # (Auto) 0.0 (0.0-0.2) X10*3/uL Abs Immat Gran (auto) 0.03 (0.00-0.03) X10*3/uL Absolute Neuts (auto) 7.1 (2.0-8.3) x10*3/uL Absolute Nucleated RBC 0.000 (0.0-0.012) X10*3/uL Nucleated RBC % (auto) 0.0 (0.0-0.2) /100WBC Sodium 140 (135-145) mmol/L Potassium 4.0 (3.3-5.1) mmol/L Chloride 106 (96-108) mmol/L Carbon Dioxide 25 (22-29) mmol/L Anion Gap 13 (12-20) BUN 16 (9-16) mg/dL Creatinine 0.94 (0.5-1.4) mg/dL Estim Creat Clear Calc 144.7 Estimated GFR > 60 Random Glucose 93 (60-115) mg/dL Calcium 9.4 (8.4-10.2) mg/dL Total Bilirubin 0.2 (0.0-1.0) mg/dL Direct Bilirubin < 0.2 (0.0-0.5) mg/dL AST 25 (5-37) U/L ALT 39 (0-40) U/L Alkaline Phosphatase 82 (39-117) U/L C-Reactive Protein 0.81 H (< or = 0.50) mg/dL Total Protein 7.5 (6.5-8.0) g/dL Albumin 4.2 (3.5-5.0) g/dL Lipase 24 (8-78) U/L Urine Color Yellow Urine Appearance Clear Urine pH 6.5 (5.0-9.0) Ur Specific [place] 1.020 (1.005-1.025) Urine Protein Negative (Neg-Trace) mg/dL Urine Glucose (UA) Negative (Negative) mg/dL Urine Ketones Negative (Negative) mg/dL Urine Blood Negative (Negative) Urine Nitrite Negative (Negative) Ur Leukocyte Esterase Negative (Negative) Discharge Plan Discharge Clinical Impression: Epigastric abdominal pain Patient Disposition: Home, Self-Care Instructions: Gastritis (ED) Additional Instructions: I think that your pain is most likely related to a stomach acid problem. This kind of pain is called gastritis. The lining of the stomach is irritated by stomach acid. I have sent a prescription for medication called omeprazole to your pharmacy. This medication helps reduce acid production. Please take this medication on a regular basis once a day. I have also sent a medication called sucralfate to your pharmacy. You may use this medication on an as-needed basis (do not use it if you do not have discomfort). You may take this medication up to 3 times a day. Please plan on following up with a regular doctor at the [facility]. Return to the emergency room if worse. Prescriptions: New omeprazole 40 mg capsule,delayed release(DR/EC) 40 mg PO DAILY Qty: 30 0RF sucralfate 1 gram tablet 1 g PO TID PRN (Reason: Upper abdominal pain) Qty: 60 0RF No Action oxycodone 5 mg tablet 5 mg PO Q4H PRN (Reason: pain) Qty: 24 0RF Rx Instructions: Take 1-2 tablets every 4-6 hours as needed for pain. docusate sodium [Colace] 100 mg capsule 100 mg PO BID PRN (Reason: constipation) Qty: 30 0RF oxycodone 5 mg tablet 5 mg PO Q6H PRN (Reason: pain) Qty: 24 0RF erythromycin 5 mg/gram (0.5 %) ointment 0.5 inch ophthalmic (eye) TID Qty: 3.5 0RF Rx Instructions: apply to the right upper eyelid 3 times a day for 5 days. Referrals: [facility] [Provider Group] (Gastritis) Interventions: ED Discharge Assessment Last Done: 07/08/23 06:26 Discharge Date/Time: 07/08/23 06:28
[2023-07-08] MEDS: Sucralfate Oral Suspension 1 GM/10 ML ORAL.SUSP 2 GM PO (04:55)
[2023-07-08 05:04] LABS: C Reactive Protein 0.81 mg/dL (< or = 0.50)
== END 2023-07-08 06:28 | disposition home or self-care (01) ==
PROVIDERS: Emergency Provider Emergency Medicine
DX: R10.13 Epigastric pain (principal); I10 Essential (primary) hypertension; F17.210 Nicotine dependence, cigarettes, uncomplicated; Z90.49 Acquired absence of other specified parts of digestive tract
CPT/HCPCS: 36415; 80048; 80076; 81003; 83690; 85025; 86140; 99283; 99284

== ENCOUNTER 2023-07-08 08:33 | Emergency (ER) | payer MEDICAID, SELFPAY ==
--- NOTE | ~2023-07-08 | XR_ITS ---
EXAMINATION: XR CHEST CLINICAL INFORMATION: Hemoptysis COMPARISON: 06/22/2023, 2017 TECHNIQUE: 2 views of the chest were obtained. FINDINGS: Mild density in the right midlung zone emanating to the hilum may represent a small area of atelectasis or infiltrate. Otherwise the lung stevens are grossly clear and comparable to previous. The cardiac silhouette is within normal limits. The hilar regions are felt to be unchanged from previous. There is no effusion. XR/XR chest 2V IMPRESSION: Mild mid lung streaky right-sided opacities radiating to the hilum may represent a small area of atelectasis or infiltrate
[2023-07-08 08:48] VITALS: BP 140/93; PULSE 88; RESP 19; TEMP 36.6; O2SAT 99; BMI 38.8
[2023-07-08 09:45] VITALS: BP 135/89; PULSE 86; RESP 18; TEMP 36.6; O2SAT 98
--- NOTE | 2023-07-08 09:48 | PC.NURSE ---
pt alert and oriented, breathing even and unlabored, skin warm and dry. pt reports RUQ ABD pain for long time , says he got diagnosed with liver lesion in December. pt reports coughing up bright red blood today, also reported vomiting. no fevers, cough, recent illnesses. pt does reports PCP use 5 days ago, regularly smokes weed. no outward distress at this time.
--- NOTE | 2023-07-08 09:50 | ECG_ITS ---
Test Reason : HEMOPTYSIS Blood Pressure : / mmHG Vent. Rate : 076 BPM Atrial Rate : 076 BPM P-R Int : 134 ms QRS Dur : 090 ms QT Int : 358 ms P-R-T Axes : 004 -02 014 degrees QTc Int : 402 ms Normal sinus rhythm Minimal voltage criteria for LVH, may be normal variant ( R in aVL ) Borderline ECG When compared to the previous EKG of No significant changes seen Referred By: Cassi Cedeno Electronically Signed By:Mark Vazquez
--- NOTE | 2023-07-08 09:59 | ED_ITS ---
HPI - General Adult General Chief complaint: General Medical Stated complaint: Coughing up blood Time Seen by Provider: 07/08/23 09:49 Source: patient Mode of arrival: ambulatory Limitations: no limitations History of Present Illness HPI narrative: 33-year-old male came in for evaluation of coughing up blood this morning. Patient was seen yesterday for chronic upper abdominal pain with unremarkable workup in the ED patient sent home he coughed up a streaks of blood in the sputum x2, last time so blood in the sputum was about 3 hours ago. Patient is complaining of sore throat, no AC. Related Data Previous Rx's Medication Instructions Recorded docusate sodium 100 mg capsule 100 mg PO BID PRN constipation #30 06/27/20 (Colace) caps oxycodone 5 mg tablet 5 mg PO Q4H PRN pain #24 tabs 06/27/20 oxycodone 5 mg tablet 5 mg PO Q6H PRN pain #24 tabs 06/28/20 erythromycin 5 mg/gram (0.5 %) eye 0.5 inch ophthalmic (eye) TID #3.5 10/16/21 ointment grams omeprazole 40 mg capsule,delayed 40 mg PO DAILY #30 caps 07/08/23 release sucralfate 1 gram tablet 1 g PO TID PRN Upper abdominal 07/08/23 pain #60 tabs Allergies Allergy/AdvReac Type Severity Reaction Status Date / Time aspirin [ASPIRIN] Allergy Unknown STOMACH Verified 07/08/23 08:48 UPSET morphine [MORPHINE] Allergy Unknown RASH Verified 07/08/23 08:48 Review of Systems 2 Review of Systems: All other systems are reviewed and are negative Constitutional: Reports as per HPI and Reports no additional constitutional complaints Eyes: Reports as per HPI and Reports no additional eye complaints Reports system reviewed and no additional complaints, except as documented Cardiovascular: Reports as per HPI and Reports no additional cardiovascular complaints Respiratory: Reports as per HPI and Reports no additional respiratory complaints Gastrointestinal: Reports as per HPI and Reports no additional gastrointestinal complaints Genitourinary: Reports no additional female genitourinary complaints Musculoskeletal: Reports no additional musculoskeletal complaints Skin/Breast: Reports system reviewed and no additional complaints, except as docu Psychiatric: Reports no additional psychiatric complaints Endocrine: Reports no additional endocrine complaints Hematologic/Lymphatic: Reports no additional hematologic/lymphatic complaints Allergic/Immunologic: Reports no additional allergic/immunologic complaints Reports system reviewed and no additional complaints, except as documented and Reports Abnormal speech present [facility] Past Medical History Medical History HTN (hypertension) Cholelithiasis Obesity Surgical History No pertinent past surgical history Family History Family History Mother History of cholecystectomy Father No problems noted. Brother No problems noted. Brother No problems noted. Sister No problems noted. Sister No problems noted. Daughter No problems noted. Social History Social History Household Members: Family Housing: House Alcohol intake: never Patient Tobacco Use Status: Current everyday Tobacco user Cigarette Packs Per Day: 0.5 Cigarettes Per Day: 10.0 Smoked in Last 30 Days: Yes Use of substances other than those prescribed or required for medical reasons: Yes Substance Use Type: Amphetamines and Hallucinogens Advance Directives: Yes Advance Directives on File: Yes Advance Directives Date on File: 06/26/20 service: No Current occupational status: unemployed Physical Exam ED Vital Signs: Vital Signs - 24 hr 07/08/23 08:48 07/08/23 09:45 Temperature 98 F 97.8 F Pulse Rate 88 86 Respiratory Rate 19 18 Blood Pressure 140/93 H 135/89 Pulse Oximetry 99 98 Oxygen Delivery Method Room Air Room Air BMI result Body Mass Index 38.8 Vital signs have been reviewed and appear to be correct. Blood pressure elevated. Heart rate normal. Respiratory rate normal. Temperature normal. Oxygen saturation normal. Appearance: Alert. Oriented X3. No acute distress. Head: Normal external exam. Normocephalic. Atraumatic. No Toure signs noted. No raccoon eyes noted Eyes: PERRLA. EOMI. Conjunctiva and sclera normal. Eyelids normal. ENT: TM's Normal. Pharynx normal. Uvula midline. Moist mucous membranes. No trismus noted. No drooling noted. No muffled voice noted. Neck: Normal inspection. Neck supple. FROM. No adenopathy. Thyroid Normal. No meningeal signs. No neck mass noted. CVS: Normal heart rate and rhythm. Heart sound normal. No murmurs noted. Pulses normal throughout. Respiratory: No respiratory distress. Painless inspiration. Breath sounds normal. No wheezes/rales/rhonchi noted. Chest nontender. No accessory muscle usage noted or decreased air movement noted. Abdomen: Soft and nontender. Bowel sounds normal in all 4 quadrants. No distention noted. No organomegaly noted. No visible injury noted. Back: No CVA tenderness. Full range of motion noted. Skin: Skin warm and dry. Normal skin color. Normal skin turgor. No rashes/lesions/lacerations noted. Extremities: No lower extremity edema. Extremities exhibit normal range of motion. Extremities nontender. Neuro: Oriented X 3. Cranial nerve exam: II-XII are grossly intact No motor deficit. No sensory deficit. Reflexes normal. Course Reevaluation(s) Reevaluation #1: patient eloped before my full evaluation, labs were unremarkable. Time: 11:29 Medications Administered Discontinued Medications Generic Name Dose Route Start Last Admin Trade Name Freq PRN Reason Stop Dose Admin Sodium Chloride 1,000 mls @ 999 mls/hr 07/08/23 09:49 07/08/23 10:30 Ns IV 07/08/23 10:49 999 mls/hr .Q1H1M ONE Administration Medical Decision Making Differential Diagnosis Differential Diagnoses: The differential diagnosis associated with the presentation includes ( Pneumonia, pneumothorax, pleural effusion, viral URI, severe anemia, pulmonary embolism.) Admission/Observation Consideration of admission/observation: Escalation of care including admission/observation considered Lab Data MDM Lab Attestation statement: I reviewed the patient's lab results. 07/08/23 10:11 07/08/23 10:11 Labs: Lab Results 07/08/23 Range/Units 10:11 WBC 8.8 (4.8-10.8) X10*3/uL RBC 4.98 (4.60-5.80) X10*6/uL Hgb 14.2 (14.0-18.0) g/dl Hct 42.6 (42.0-52.0) % MCV 85.5 (80.0-98.0) fL MCH 28.5 (27.0-33.0) pg MCHC 33.3 (31.0-36.0) g/dl RDW 14.5 (11.0-16.0) % Plt Count 270 (160-400) X10*3/uL MPV 10.8 (9.4-12.4) fL Immature Gran % (Auto) 0.3 (0.0-0.4) % Neut % (Auto) 72.5 (45-73) % Lymph % (Auto) 18.9 L (20-40) % [place] % (Auto) 7.5 (2-11) % Eos % (Auto) 0.6 (0-4) % Baso % (Auto) 0.2 (0-2) % Lymph # (Auto) 1.7 (1.2-4.9) X10*3/uL [place] # (Auto) 0.7 (0.1-1.2) X10*3/uL Eos # (Auto) 0.1 (0.0-0.4) X10*3/uL Baso # (Auto) 0.0 (0.0-0.2) X10*3/uL Abs Immat Gran (auto) 0.03 (0.00-0.03) X10*3/uL Absolute Neuts (auto) 6.3 (2.0-8.3) x10*3/uL Absolute Nucleated RBC 0.000 (0.0-0.012) X10*3/uL Nucleated RBC % (auto) 0.0 (0.0-0.2) /100WBC D-Dimer High Sensitivty < 150 NG/ML Sodium 141 (135-145) mmol/L Potassium 4.0 (3.3-5.1) mmol/L Chloride 107 (96-108) mmol/L Carbon Dioxide 27 (22-29) mmol/L Anion Gap 11 L (12-20) BUN 13 (9-16) mg/dL Creatinine 0.80 (0.5-1.4) mg/dL Estim Creat Clear Calc 169.0 Estimated GFR > 60 Random Glucose 90 (60-115) mg/dL Calcium 8.8 D (8.4-10.2) mg/dL Total Bilirubin 0.4 (0.0-1.0) mg/dL Direct Bilirubin 0.2 (0.0-0.5) mg/dL AST 22 (5-37) U/L ALT 36 (0-40) U/L Alkaline Phosphatase 85 (39-117) U/L Troponin I High Sens < 2.7 (<3.5-35.0) ng/L B-Natriuretic Peptide < 10 (<100) pg/mL Total Protein 7.3 (6.5-8.0) g/dL Albumin 4.1 (3.5-5.0) g/dL Lipase 25 (8-78) U/L COVID-19 (JEWELS) Negative (Negative) COVID-19 Clin Com See Note Influenza Type A (TANISHA) Negative (Negative) Influenza Type B (TANISHA) Negative (Negative) Influenza A & B Note See Note S. pyogenes GrpA TANISHA Negative (Negative) Independent Interpretation I performed an independent interpretation of an: Plain X-Ray ( Chest: No acute intrathoracic pathology.) Radiology Impression Discussion of test interpretation with radiology: I have reviewed the radiologist's reading. Discharge Plan Discharge Clinical Impression: Cough with hemoptysis Patient Disposition: Elopement Prescriptions: No Action oxycodone 5 mg tablet 5 mg PO Q4H PRN (Reason: pain) Qty: 24 0RF Rx Instructions: Take 1-2 tablets every 4-6 hours as needed for pain. docusate sodium [Colace] 100 mg capsule 100 mg PO BID PRN (Reason: constipation) Qty: 30 0RF oxycodone 5 mg tablet 5 mg PO Q6H PRN (Reason: pain) Qty: 24 0RF erythromycin 5 mg/gram (0.5 %) ointment 0.5 inch ophthalmic (eye) TID Qty: 3.5 0RF Rx Instructions: apply to the right upper eyelid 3 times a day for 5 days. omeprazole 40 mg capsule,delayed release(DR/EC) 40 mg PO DAILY Qty: 30 0RF sucralfate 1 gram tablet 1 g PO TID PRN (Reason: Upper abdominal pain) Qty: 60 0RF Discharge Date/Time: 07/08/23 11:16
[2023-07-08 10:15] LABS: MANUAL DIFF FLAG NO
[2023-07-08 10:17] LABS: Basophils Percent Auto 0.2 % (0-2); Eosinophils Absolute Auto 0.1 X10*3/uL (0.0-0.4); Eosinophils Percent Auto 0.6 % (0-4); Hematocrit 42.6 % (42.0-52.0); Hemoglobin 14.2 g/dl (14.0-18.0); Imm Gran Abs Auto 0.03 X10*3/uL (0.00-0.03); Imm Gran Pct Auto 0.3 % (0.0-0.4); Lymphocytes Absolute Auto 1.7 X10*3/uL (1.2-4.9); Lymphocytes Percent Auto 18.9 % (20-40); Mean Corpuscular HGB Conc 33.3 g/dl (31.0-36.0); Mean Corpuscular Hemoglobin 28.5 pg (27.0-33.0); Mean Corpuscular Volume 85.5 fL (80.0-98.0); Mean Platelet Volume 10.8 fL (9.4-12.4); Monocytes Absolute Auto 0.7 X10*3/uL (0.1-1.2); Monocytes Percent Auto 7.5 % (2-11); Neutrophils Absolute Auto 6.3 x10*3/uL (2.0-8.3); Neutrophils Percent Auto 72.5 % (45-73); Platelet Count 270 X10*3/uL (160-400); Red Blood Count 4.98 X10*6/uL (4.60-5.80); Red Cell Distribution Width 14.5 % (11.0-16.0); White Blood Count 8.8 X10*3/uL (4.8-10.8)
[2023-07-08 10:27] LABS: D Dimer High Sensitivity < 150 NG/ML
[2023-07-08] MEDS: 0.9 % Sodium Chloride 1,000 ML 999 ML IV (10:30)
[2023-07-08 10:32] LABS: COVID-19 Test Negative (Negative); IDNOW Serial# 08D9AD1C; IDNOW Serial# 9DB6401D; Strep A Nucleic Acid Negative (Negative)
[2023-07-08 10:34] LABS: IDNOW Serial# 58CA691E; Influenza A Negative (Negative); Influenza B2 Negative (Negative)
[2023-07-08 10:36] LABS: Alanine Aminotransferase 36 U/L (0-40); Albumin Level 4.1 g/dL (3.5-5.0); Alkaline Phosphatase 85 U/L (39-117); Anion Gap 11 (12-20); Aspartate Amino Transferase 22 U/L (5-37); Bilirubin Direct 0.2 mg/dL (0.0-0.5); Bilirubin Total 0.4 mg/dL (0.0-1.0); Blood Urea Nitrogen 13 mg/dL (9-16); Calcium 8.8 mg/dL (8.4-10.2); Carbon Dioxide 27 mmol/L (22-29); Chloride 107 mmol/L (96-108); Estimated Glomerular Filt Rate > 60; Glucose Random 90 mg/dL (60-115); Lipase 25 U/L (8-78); Sodium 141 mmol/L (135-145); Total Protein 7.3 g/dL (6.5-8.0)
[2023-07-08 10:42] LABS: B Type Natriuretic Peptide < 10 pg/mL (<100)
[2023-07-08 10:43] LABS: Troponin-I High Sensitivity < 2.7 ng/L (<3.5-35.0)
--- NOTE | 2023-07-08 11:15 | PC.NURSE ---
Pt suddenly requesting IV to be removed and wanting to leave IV removed and pt asked about why leaving and no answer provided. Dr Cedeno aware. Pt noted to leaving ED.
== END 2023-07-08 11:16 | disposition left against medical advice (07) ==
LOC: HO.ED 09:53
PROVIDERS: Emergency Provider Emergency Medicine
DX: R04.2 Hemoptysis (principal); J02.9 Acute pharyngitis, unspecified; Z11.52 Encounter for screening for COVID-19; F17.210 Nicotine dependence, cigarettes, uncomplicated
CPT/HCPCS: 36415; 71046; 80048; 80076; 83690; 83880; 84484; 85025; 85379; 87502; 87635; 87651; 93005; 99283; 99284

== ENCOUNTER → 2023-07-08 09:50 | Outpatient (BNV) | payer MEDICAID, SELFPAY | PROVIDERS: Emergency Provider Emergency Medicine; Visit Provider Internal Medicine Cardiovascular Disease | DX: R04.2 Hemoptysis (principal) | CPT/HCPCS: 93010 ==

== ENCOUNTER 2024-12-28 21:28 | Emergency (ER) | payer SELFPAY ==
[2024-12-28 21:48] VITALS: BP 151/83; PULSE 109; RESP 18; TEMP 37.1; O2SAT 95; BMI 42.5
--- NOTE | 2024-12-28 21:53 | ECG_ITS ---
Test Reason : RUQ EPIGASTRIC PAIN Blood Pressure : */* mmHG Vent. Rate : 105 BPM Atrial Rate : 105 BPM P-R Int : 132 ms QRS Dur : 88 ms QT Int : 326 ms P-R-T Axes : 12 4 21 degrees QTcB Int : 430 ms Sinus tachycardia Otherwise normal ECG When compared with ECG of 08-Jul-2023 10:01, No significant change was found Referred By: Generic ED Physician Electronically Signed By: ROSI GONZALEZ
[2024-12-28 22:20] LABS: MANUAL DIFF FLAG NO
[2024-12-28 22:21] LABS: Hematocrit 39.9 % (42.0-52.0); Hemoglobin 13.7 g/dl (14.0-18.0); Imm Gran Abs Auto 0.02 X10*3/uL (0.00-0.03); Imm Gran Pct Auto 0.2 % (0.0-0.4); Lymphocytes Absolute Auto 2.1 X10*3/uL (1.2-4.9); Mean Corpuscular HGB Conc 34.3 g/dl (31.0-36.0); Mean Corpuscular Hemoglobin 28.4 pg (27.0-33.0); Mean Corpuscular Volume 82.8 fL (80.0-98.0); NRBC Abs Auto 0.000 X10*3/uL (0.0-0.012); NRBC Pct Auto 0.0 /100WBC (0.0-0.2); Platelet Count 259 X10*3/uL (160-400); Red Blood Count 4.82 X10*6/uL (4.60-5.80); White Blood Count 10.1 X10*3/uL (4.8-10.8)
[2024-12-28 22:40] LABS: Alanine Aminotransferase 39 U/L (0-40); Albumin Level 4.4 g/dL (3.5-5.0); Alkaline Phosphatase 87 U/L (39-117); Anion Gap 13 (12-20); Aspartate Amino Transferase 35 U/L (5-37); Blood Urea Nitrogen 11 mg/dL (9-16); Calcium 8.8 mg/dL (8.4-10.2); Carbon Dioxide 22 mmol/L (22-29); Chloride 108 mmol/L (96-108); Creatinine Clr Calc Pharmacy 163.6; Estimated Glomerular Filt Rate > 60; Lipase 11 U/L (8-78); Potassium 3.8 mmol/L (3.3-5.1); Sodium 139 mmol/L (135-145); Total Protein 7.8 g/dL (6.5-8.0)
[2024-12-28 22:45] LABS: Troponin-I High Sensitivity < 2.7 ng/L (<3.5-35.0)
--- OUTSIDE RECORDS SUMMARY | 2024-12-29 00:27 | XMS_ITS | Patient Health Record ---
Author Organization [facility] Address [address], [place] [id number] Care Team Providers Care Industrial Production Manager Name Role Phone [facility] Primary Care Provider [facility], [facility] Unavailable [phone] Reason For Referral No Information Plan Of Treatment No Information Insurance Providers Payer Name Payer Address Payer Phone Subscriber Number Group Number Insured Name Patient Relationship to Insured Coverage Start Date Coverage End Date [place] C3 [address] [place], [place] [id number] Osvaldo Mcnamara Self - patient is the insured 3
== END 2024-12-29 00:26 | disposition left against medical advice (07) ==
LOC: HO.ED 12-29 00:25
PROVIDERS: Emergency Provider Emergency Medicine
DX: R10.11 Right upper quadrant pain (principal); Z53.21 Procedure and treatment not carried out due to patient leaving prior to being seen by health care provider
CPT/HCPCS: 36415; 80053; 82248; 83690; 84484; 85025; 93005; 99281; 99283

== ENCOUNTER → 2024-12-28 21:53 | Outpatient (BNV) | payer MEDICAID, SELFPAY | PROVIDERS: Emergency Provider Emergency Medicine; Visit Provider Internal Medicine | DX: R00.0 Tachycardia, unspecified (principal) | CPT/HCPCS: 93010 ==

== ENCOUNTER 2025-01-05 09:28 | Emergency (ER) | payer SELFPAY ==
--- NOTE | ~2025-01-05 | XR_ITS ---
EXAMINATION: XR CHEST 2 VIEWS HISTORY: chest pain COMPARISON: Comparison is made with the prior examination dated 07/08/2023. FINDINGS: PA and lateral views of the chest are submitted. The lungs are expanded and clear. There is no pleural effusion, pneumothorax, or pulmonary vascular congestion. The heart is normal in size. The bones are intact. XR/XR chest 2V IMPRESSION: No acute cardiopulmonary abnormality. Electronically signed by: Harish Mcclelland MD 01/05/2025 10:25 AM EDT
--- NOTE | 2025-01-05 09:30 | ECG_ITS ---
Test Reason : chest pain Blood Pressure : */* mmHG Vent. Rate : 96 BPM Atrial Rate : 96 BPM P-R Int : 150 ms QRS Dur : 96 ms QT Int : 352 ms P-R-T Axes : 40 -4 9 degrees QTcB Int : 444 ms Normal sinus rhythm Minimal voltage criteria for LVH, may be normal variant ( R in aVL ) Borderline ECG When compared with ECG of 28-Dec-2024 22:03, No significant change was found Referred By: Nu Caldwell Electronically Signed By: Mark Vazquez
--- NOTE | 2025-01-05 09:30 | ED.GENADULT ---
HPI - General Adult General Chief complaint: Chest Pain Stated complaint: CP,SOB Time Seen by Provider: 01/05/25 09:29 Source: patient, EMS, RN notes reviewed and old records reviewed Mode of arrival: EMS Limitations: no limitations History of Present Illness ED Provider: Javi HPI narrative: Patient is a 34-year-old male with reported history of HTN, cholecytectomy, smoking presenting to the ED with complaint of chest pain and dyspnea which began last night. States when he got to work today the dyspnea was worse and he asked someone to call an ambulance. Per EMS patient was hypoxic to 90% on room air. Denies recent cough or fevers. Does admit to using cocaine and drinking alcohol a few days prior to onset of symptoms. Denies dizziness or lightheadedness. MD complaint: chest pain and dyspnea Onset (ago): hour(s) Related Data Previous Rx's ?Medication ?Instructions ?Recorded docusate sodium 100 mg capsule 100 mg PO BID PRN constipation #30 06/27/20 (Colace) caps oxycodone 5 mg tablet 5 mg PO Q4H PRN pain #24 tabs 06/27/20 oxycodone 5 mg tablet 5 mg PO Q6H PRN pain #24 tabs 06/28/20 erythromycin 5 mg/gram (0.5 %) eye 0.5 inch ophthalmic (eye) TID #3.5 10/16/21 ointment grams omeprazole 40 mg capsule,delayed 40 mg PO DAILY #30 caps 07/08/23 release sucralfate 1 gram tablet 1 g PO TID PRN Upper abdominal 07/08/23 pain #60 tabs Allergies Allergy/AdvReac Type Severity Reaction Status Date / Time aspirin (ASPIRIN) Allergy Unknown STOMACH Verified 01/05/25 09:51 UPSET morphine (MORPHINE) Allergy Unknown RASH Verified 01/05/25 09:51 Review of Systems Review of Systems: As per HPI Yes all other systems are reviewed and are negative Constitutional: Constitutional: Reports as per HPI PMFSH Past Medical History Medical History HTN (hypertension) Cholelithiasis Obesity Surgical History No pertinent past surgical history Family History Family History Mother History of cholecystectomy Father No problems noted. Brother No problems noted. Brother No problems noted. Sister No problems noted. Sister No problems noted. Daughter No problems noted. Social History Social History Household Members: Family Housing: House Alcohol intake: never Patient Tobacco Use Status: Current everyday Tobacco user Cigarette Packs Per Day: 0.5 Cigarettes Per Day: 10.0 Substance Use Type: Amphetamines and Hallucinogens Advance Directives: Yes Advance Directives on File: Yes Advance Directives Date on File: 06/26/20 service: No Current occupational status: unemployed Physical Exam ED Vital Signs: Vital Signs - 24 hr 01/05/25 10:01 01/05/25 11:58 01/05/25 14:00 Temperature 98.7 F 98.2 F 98.2 F Pulse Rate 106 H 90 94 Respiratory Rate 18 15 15 Blood Pressure 132/86 145/96 H 136/90 H Pulse Oximetry 97 100 100 Oxygen Delivery Method Nasal Cannula Nasal Cannula Room Air Oxygen Flow Rate 2 3 01/05/25 16:00 01/05/25 16:03 Temperature 98.2 F 98 F Pulse Rate 84 70 Respiratory Rate 15 15 Blood Pressure 137/85 151/84 H Pulse Oximetry 100 97 Oxygen Delivery Method Room Air Room Air Oxygen Flow Rate BMI result Body Mass Index 36.7 Vital signs have been reviewed and appear to be correct. Blood pressure normal. Heart rate slightly tachycardic. Respiratory rate normal. Temperature normal. Oxygen saturation normal. Const General: cooperative, healthy appearing and no acute distress Orientation/consciousness: oriented to person, oriented to place, oriented to time and patient oriented x3 Limitations: no limitations [facility] Head: Yes normocephalic and Yes atraumatic Ears: external ears normal General nose exam: Normal external nose present Face and sinus: Yes face symmetric Mouth: oropharynx normal and moist mucous membranes Throat: Yes uvula midline Eyes Pupils: Equal, round and reactive pupils present Neck Neck: Yes normal visual inspection and Yes supple Resp Effort & Inspection: normal respiratory effort and able to speak in complete sentences Auscultation: clear to auscultation bilaterally Cardio Rate: regular rate Rhythm: regular rhythm Heart sounds: S1 normal heart sound present and S2 normal heart sound present GI Palpation (GI): Soft to palpation and nontender Auscultation: normoactive bowel sounds General: Yes no CVA tenderness Back/Spine/Pelvis Back: no CVA tenderness Skin General skin exam: elasticity normal and turgor normal Neuro General: oriented to person, oriented to place, oriented to time, patient oriented x3, moves all extremities, no focal motor deficits and CN's II-XI intact bilaterally Cranial nerves: Yes Equal, round and reactive pupils present Cognition (Neuro): normal cognition Extrem General: Yes full ROM, Yes no pedal edema and Yes no calf tenderness Psych Mental Status: mental status grossly normal Affect: normal affect Thought process: Normal thought process present Medications Administered Discontinued Medications Generic Name Dose Route Start Last Admin Trade Name Freq PRN Reason Stop Dose Admin Sodium Chloride 1,000 mls @ 999 mls/hr 01/05/25 13:00 01/05/25 15:38 Ns IV 01/05/25 14:00 Infused .Q1H1M HAL Infusion Acetaminophen 1,000 mg in 100 mls @ 400 mls/hr 01/05/25 12:57 01/05/25 15:02 Ofirmev IV 01/05/25 13:11 Infused ONCE ONE Infusion Lorazepam 2 mg 01/05/25 14:29 01/05/25 15:03 Lorazepam 1 Mg Tablet PO 01/05/25 14:30 2 mg ONCE ONE Administration Procedures Procedure Narrative Procedure Narrative: EMERGENCY ULTRASOUND INTERPRETATION-Limited Echocardiography [This study was ordered, performed, and interpreted by myself. The study reveals: Impression: NORMAL LV FUNCTION, NO RV DYSFUNCTION, NO PERICARDIAL EFFUSION] [Emergent Cardiac for Indication: Views Used: PLAX, PSSA, A4, SX, IVC Pericardial Effusion/Tamponade Findings: NONE RV Dilation (> LV diam in 4ch apical): NONE Global LV Fxn: NORMAL IVC Dilation and Resp Variation: NORMAL Performed by: MD Juanita Images were stored CPT:41492] Medical Decision Making Medical Decision Making MDM Narrative: Patient is a 34-year-old male with reported history of HTN, cholecystectomy, smoking presenting to the ED with complaint of chest pain and dyspnea which began last night. On exam patient is awake, A+Ox3, VS WNL, afebrile, normal neurological exam without focal deficits, physical exam findings as above. Given reported symptoms and physical exam findings, initial differential includes but is not limited to ACS, PE, chest wall strain, pneumonia, viral illness. Labs notable for slightly elevated troponin of 27.8, repeat of 62.4, mild leukocytosis, negative d dimer-unlikely PE. X-ray chest notable for no evidence of pneumonia or pneumothorax. My interpretation is in agreement with the radiologist's interpretation. EKG shows normal sinus rhythm. Case discussed with metal wire technician, Dr. Vazquez, who feels symptoms are likely due to recent cocaine use, recommends treating with a benzodiazepine. Patient reporting significant improvement in symptoms after p.o. lorazepam. Feel he is stable for discharge at this time. Strict return precautions discussed. Advised patient to avoid cocaine use in the future. Will refer to Cardiology for ongoing symptoms. Patient verbalized understanding of and agreement with plan. Differential Diagnosis Differential Diagnoses: The differential diagnosis associated with the presentation includes As per [facility] Admission/Observation Consideration of admission/observation: Escalation of care including admission/observation considered Patient would have been admitted to the hospital had their clinical presentation warranted hospital admission. Consult Healthcare Provider Management of the patient was discussed with: Slag Wheeler (Dr. aVzquez) Lab Data [facility] Lab Attestation statement: I reviewed the patient's lab results. as per [facility] 01/05/25 10:08 01/05/25 10:07 Labs: Lab Results 01/05/25 01/05/25 01/05/25 Range/Units 10:07 10:08 12:53 WBC 13.1 H (4.8-10.8) X10*3/uL RBC 4.78 (4.60-5.80) X10*6/uL Hgb 13.3 L (14.0-18.0) g/dl Hct 40.5 L (42.0-52.0) % MCV 84.7 (80.0-98.0) fL MCH 27.8 (27.0-33.0) pg MCHC 32.8 (31.0-36.0) g/dl RDW 14.6 (11.0-16.0) % Plt Count 274 (160-400) X10*3/uL MPV 11.0 (9.4-12.4) fL Immature Gran % (Auto) 0.3 (0.0-0.4) % Neut % (Auto) 88.9 H (45-73) % Lymph % (Auto) 6.0 L (20-40) % Deuel % (Auto) 4.6 (2-11) % Eos % (Auto) 0.0 (0-4) % Baso % (Auto) 0.2 (0-2) % Lymph # (Auto) 0.8 L (1.2-4.9) X10*3/uL Deuel # (Auto) 0.6 (0.1-1.2) X10*3/uL Eos # (Auto) 0.0 (0.0-0.4) X10*3/uL Baso # (Auto) 0.0 (0.0-0.2) X10*3/uL Abs Immat Gran (auto) 0.04 H (0.00-0.03) X10*3/uL Absolute Neuts (auto) 11.7 H (2.0-8.3) x10*3/uL Absolute Nucleated RBC 0.000 (0.0-0.012) X10*3/uL Nucleated RBC % (auto) 0.0 (0.0-0.2) /100WBC D-Dimer High Sensitivty < 150 NG/ML Sodium 140 (135-145) mmol/L Potassium 3.7 (3.3-5.1) mmol/L Chloride 106 (96-108) mmol/L Carbon Dioxide 24 (22-29) mmol/L Anion Gap 14 (12-20) BUN 14 (9-16) mg/dL Creatinine 1.22 (0.5-1.4) mg/dL Estim Creat Clear Calc 109.8 Estimated GFR > 60 Random Glucose 101 (60-115) mg/dL Calcium 9.1 (8.4-10.2) mg/dL Total Bilirubin 0.7 (0.0-1.0) mg/dL AST 41 H (5-37) U/L ALT 33 (0-40) U/L Alkaline Phosphatase 90 (39-117) U/L Troponin I High Sens 27.8 D 62.4 H D (<3.5-35.0) ng/L Total Protein 7.8 (6.5-8.0) g/dL Albumin 4.6 (3.5-5.0) g/dL Influenza Type A (PCR) NEGATIVE (Negative) Influenza Type B (PCR) NEGATIVE (Negative) RSV RNA Qual (PCR) NEGATIVE (Negative) SARS-CoV-2 RNA (RT-PCR) NEGATIVE (Negative) Independent Interpretation I performed an independent interpretation of an: EKG (Normal sinus rhythm, rate 96 beats per minute, normal AR interval and QTC, no significant change from prior) and Plain X-Ray Interpretation: Chest x-ray is without evidence of pneumonia or pneumothorax. Radiology Impression Discussion of test interpretation with radiology: I have reviewed the radiologist's reading. Radiologist Impression: XR/XR chest 2V IMPRESSION: No acute cardiopulmonary abnormality. External Record Review External record reviewed: Inpatient record, Office record and Outpatient record Critical Care Time Critical Care Time Critical Care Time: Yes Total Critical Care Time: 33 Attestation: I have personally provided critical care time exclusive of time spent on separately billable procedures. Time includes review of lab data, radiology results, discussion with consultants, and monitoring for potential decompensation. Intervention performed as documented. Discharge Plan Discharge Clinical Impression: Chest pain Patient Disposition: Home, Self-Care Instructions: Chest Pain (DC) Additional Instructions: You were evaluated in the emergency department today for chest pain. Your pain was likely due to your recent cocaine use. Avoid using cocaine in the future as it can cause significant damage to your heart. Your evaluation has shown no signs of medical conditions requiring emergent intervention at this time, however we recommend that you follow-up with your primary care physician or a metal wire technician for further testing as an outpatient. Please schedule an appointment for follow-up with your primary care physician as soon as possible. Return to the emergency department if you experience worsening or uncontrolled chest pain, shortness of breath, lightheadedness, feeling faint, loss of consciousness, nausea, vomiting, or any other concerning symptoms. Prescriptions: No Action oxycodone 5 mg tablet 5 mg PO Q4H PRN (Reason: pain) Qty: 24 0RF Rx Instructions: Take 1-2 tablets every 4-6 hours as needed for pain. docusate sodium [Colace] 100 mg capsule 100 mg PO BID PRN (Reason: constipation) Qty: 30 0RF oxycodone 5 mg tablet 5 mg PO Q6H PRN (Reason: pain) Qty: 24 0RF erythromycin 5 mg/gram (0.5 %) ointment 0.5 inch ophthalmic (eye) TID Qty: 3.5 0RF Rx Instructions: apply to the right upper eyelid 3 times a day for 5 days. omeprazole 40 mg capsule,delayed release(DR/EC) 40 mg PO DAILY Qty: 30 0RF sucralfate 1 gram tablet 1 g PO TID PRN (Reason: Upper abdominal pain) Qty: 60 0RF Referrals: [facility] [Provider Group] Clinical Impression: Chest pain Stand Alone Forms: Work/School Release Interventions: ED Discharge Assessment Last Done: 01/05/25 16:03 Discharge Date/Time: 01/05/25 16:15 Print Language: Emirati
[2025-01-05 09:42] VITALS: BP 148/98; PULSE 110; O2SAT 98
[2025-01-05 09:49] VITALS: BMI 35.9
[2025-01-05 10:01] VITALS: BP 132/86; PULSE 106; RESP 18; TEMP 37.1; O2SAT 97
[2025-01-05 10:02] VITALS: BMI 36.7
[2025-01-05 10:11] LABS: MANUAL DIFF FLAG NO
[2025-01-05 10:14] LABS: Hematocrit 40.5 % (42.0-52.0); Hemoglobin 13.3 g/dl (14.0-18.0); Imm Gran Abs Auto 0.04 X10*3/uL (0.00-0.03); Imm Gran Pct Auto 0.3 % (0.0-0.4); Lymphocytes Absolute Auto 0.8 X10*3/uL (1.2-4.9); Mean Corpuscular HGB Conc 32.8 g/dl (31.0-36.0); Mean Corpuscular Hemoglobin 27.8 pg (27.0-33.0); Mean Corpuscular Volume 84.7 fL (80.0-98.0); NRBC Abs Auto 0.000 X10*3/uL (0.0-0.012); NRBC Pct Auto 0.0 /100WBC (0.0-0.2); Platelet Count 274 X10*3/uL (160-400); Red Blood Count 4.78 X10*6/uL (4.60-5.80); White Blood Count 13.1 X10*3/uL (4.8-10.8)
[2025-01-05 10:23] LABS: D Dimer High Sensitivity < 150 NG/ML
[2025-01-05 10:29] LABS: Alanine Aminotransferase 33 U/L (0-40); Albumin Level 4.6 g/dL (3.5-5.0); Alkaline Phosphatase 90 U/L (39-117); Anion Gap 14 (12-20); Aspartate Amino Transferase 41 U/L (5-37); Blood Urea Nitrogen 14 mg/dL (9-16); Calcium 9.1 mg/dL (8.4-10.2); Carbon Dioxide 24 mmol/L (22-29); Chloride 106 mmol/L (96-108); Creatinine Clr Calc Pharmacy 109.8; Estimated Glomerular Filt Rate > 60; Potassium 3.7 mmol/L (3.3-5.1); Sodium 140 mmol/L (135-145); Total Protein 7.8 g/dL (6.5-8.0)
[2025-01-05 10:35] LABS: Troponin-I High Sensitivity 27.8 ng/L (<3.5-35.0)
--- OUTSIDE RECORDS SUMMARY | 2025-01-05 10:54 | XMS_ITS | Clinical Summary ---
Author Organization [facility] Address [address] [place] [address] Care Team Providers Care Keeper Head Name Role Phone Unavailable Primary Care Provider Unavailabl e Allergies Active Allergy Reactions Criticality Noted Date Comments Aspirin Unknown 06/11/2023 Morphine Unknown 06/11/2023 Medications famotidine (Pepcid) 20 MG tablet Take 1 tablet (20 mg) by mouth 2 times daily. 60 tablet 1 06/11/2023 Active Blood Pressure Monitor kit 1 Device in the morning. 1 kit 06/11/2023 Active Blood Pressure Monitor kit 1 Device in the morning. 1 kit 06/11/2023 Active Active Problems Problem Noted Date Diagnosed Date RUQ pain 06/13/2023 Assessment & Plan (06/13/2023 9:46 AM EST): Pt s/p cholecystectomy w on and off RUQ discomfort -chronic -record obtained of MRI Abdomen W+W/O Contrast 12/2022 LIVER: Normal contour and size. Normal parenchymal enhancement. No suspicious lesion. No correlate for the history of 3.7 cm liver lesion. Moderate hepatic steatosis, fat fraction 16%. GALLBLADDER: Cholecystectomy. BILE DUCTS: Normal post cholecystectomy. Mild prominence of the common hepatic duct at 7 mm. Distal bile duct detail limited by blurring on 3-D MRCP. SPLEEN: Normal. PANCREAS: Fatty infiltration, including the pancreatic head, also present on CT 07/11/2019. No focal pancreatic lesion is evident, although detail is mildly limited by motion artifact. No pancreatic ductal dilatation. ADRENAL GLANDS: No nodules. KIDNEYS: No hydronephrosis. Kidneys enhance symmetrically. No suspicious mass. STOMACH/UPPER GI TRACT: Stomach and visualized abdominal bowel normal in caliber. PERITONEUM AND RETROPERITONEUM: No loculated fluid collection or peritoneal mass. LYMPH NODES: No lymphadenopathy. VESSELS: Abdominal aorta is nonaneurysmal. Hepatic, portal and splenic veins patent. Visualized inferior vena cava unremarkable. ABDOMINAL WALL: Unremarkable. BONES: Unremarkable. IMPRESSION: 1. Moderate hepatic steatosis. 2. No focal liver lesion identified. It is possible for focal regions of fatty infiltration or fatty sparing to resolve; correlate with prior history. 3. Cholecystectomy. 4. Mild fatty infiltration of the pancreas without suspicious lesion or pancreatic duct dilation. -famotidinbe HS prn and simethicone prn -Abd US referred today -chem,CBC today -pt missed apt w new PCP in [place]-pt will call to reschedule to f w PCP -alarm signs and symptoms discussed , if Abd US is not helpful will need to refer pt to GI Elevated blood pressure reading 06/13/2023 Assessment & Plan (06/13/2023 9:46 AM EST): BP elevated thinks told in the past -gave BP machine to monitor and bring records to new PCP apt Social History Tobacco Use Types Packs/Day Years Used Date Smoking Tobacco: Every Day Cigarettes Passive Smoke Exposure: Current Smokeless Tobacco: Never Tobacco Cessation:Ready to Q uit: Not Asked; Counseling Given: Not Answered Sex and Gender Information Value Date Recorded Sex Assigned at Male 03/23/2022 10:15 AM EDT Legal Sex Male 10:15 AM EDT Gender Identity Male 05/28/2023 3:00 PM EST Sexual Orientation Straight 06/11/2023 10 :30 AM EST Last Filed Vital Signs Vital Sign Reading Time Taken Comments Blood Pressure 146/94 06/11/2023 10:57 AM EST Pulse 84 06/11/2023 10:57 AM EST Temperature 36.8 C (98.2 F) 06/11/2023 10:57 AM EST Respiratory Rate 18 06/11/2023 10:57 AM EST Oxygen Saturation 98% 06/11/2023 10:57 AM EST Inhaled Oxygen Concentration - - Weight 123 kg (271 lb 12.8 oz) 06/11/2023 10:57 AM EST Height 175.3 cm (5' 9 ) 06/11/2023 10:57 AM EST Body Mass Index 40.14 06/11/2023 10:57 AM EST Plan of Treatment Health Maintenance Due Date Last Done Comments Depression Screening 1991 HIV Screening 1991 SDOH Screening 1991 Disability Screening 1991 Alcohol/Substance Use Screening 2003 Family Planning (PISQ) 2006 HPV Vaccines (1 - Male 3-dos e series) 2006 Hepatitis C Screening 2009 Hepatitis B Vaccines (1 of 3 - 19+ 3-dose series) 2010 Pneumococcal Vaccine: Pediatrics (0 to 5 Years) and At-Risk Patients (6 to 49) Years (1 of 2 - PCV) 2010 COVID-19 Vaccine (2 - 2023-2 5 season) 2024 10/03/2020 Tobacco Screening 06/11/2024 06/11/2023 Influenza Vaccine (#1) 2025 9, 03/18/2015 DTaP/Tdap/Td Vaccines (2 - T d or Tdap) 07/27/2028 07/27/2018, 06/18/2015 Zoster Vaccines (1 of 2) 2041 RSV Patients and Patients Aged 60 years or older (1 - 1-dose 75+ series) 2066 HIB Vaccines Aged Out No longer eligi ble based on patient's age to complete this topic Hepatitis A Vaccines Aged Out No long er eligible based on patient's age to complete this topic IPV Vaccines Aged Out No longer eligi ble based on patient's age to complete this topic Meningococcal B Vaccine Aged Out No l onger eligible based on patient's age to complete this topic Meningococcal Vaccine Aged Out No brenda [place] eligible based on patient's age to complete this topic RSV under 20 months Aged Out No longe r eligible based on patient's age to complete this topic Rotavirus Vaccines Aged Out No longer eligible based on patient's age to complete this topic [facility]
--- OUTSIDE RECORDS SUMMARY | 2025-01-05 10:54 | XMS_ITS | Patient Health Record ---
Author Organization [facility] Address [address] [place], [place] [id number] Care Team Providers Care Grazing Examiner Name Role Phone [facility] Primary Care Provider [facility] Unavailable [phone] Reason For Referral No Information Plan Of Treatment No Information Insurance Providers Payer Name Payer Address Payer Phone Subscriber Number Group Number Insured Name Patient Relationship to Insured Coverage Start Date Coverage End Date [place] C3 [address] [place], [place] [id number] Osvaldo Mcnamara Self - patient is the insured 3
[2025-01-05 11:58] VITALS: BP 145/96; PULSE 90; RESP 15; TEMP 36.8; O2SAT 100
[2025-01-05 12:49] LABS: Resp Syncy Virus RNA Qual PCR NEGATIVE (Negative); SARS COV2 PCR INHOUSE NEGATIVE (Negative)
[2025-01-05 13:26] LABS: Troponin-I High Sensitivity 62.4 ng/L (<3.5-35.0)
[2025-01-05 14:00] VITALS: BP 136/90; PULSE 94; RESP 15; TEMP 36.8; O2SAT 100
[2025-01-05 16:00] VITALS: BP 137/85; PULSE 84; RESP 15; TEMP 36.8; O2SAT 100
[2025-01-05 16:03] VITALS: BP 151/84; PULSE 70; RESP 15; TEMP 36.6; O2SAT 97
== END 2025-01-05 16:15 | disposition home or self-care (01) ==
PROVIDERS: Registered Nurse Emergency; Emergency Provider Emergency Medicine
DX: R07.89 Other chest pain (principal); R06.02 Shortness of breath; Z03.818 Encounter for observation for suspected exposure to other biological agents ruled out; Z79.899 Other long term (current) drug therapy
CPT/HCPCS: 36415; 71046; 80053; 84484; 85025; 85379; 87637; 93005; 93308; 96365; 99284; J0131

== ENCOUNTER → 2025-01-05 09:30 | Outpatient (BNV) | payer SELFPAY | PROVIDERS: Emergency Provider Emergency Medicine; Visit Provider Radiology Diagnostic Radiology | DX: R07.9 Chest pain, unspecified (principal) | CPT/HCPCS: 71046 ==

== ENCOUNTER → 2025-01-05 09:30 | Outpatient (BNV) | payer SELFPAY | PROVIDERS: Emergency Provider Emergency Medicine; Visit Provider Internal Medicine Cardiovascular Disease | DX: R07.9 Chest pain, unspecified (principal) | CPT/HCPCS: 93010 ==

== ENCOUNTER 2025-02-18 20:11 | Emergency (ER) | payer MEDICAID, SELFPAY ==
--- NOTE | ~2025-02-18 | XR_ITS ---
CLINICAL HISTORY: trauma 3 view left wrist Comparison: CR - XR HAND LT MIN 3V - 02/18/25 20:54 EDT Findings: Acute comminuted fracture involving the left distal radius involving the articular surface. No significant arthritic change or erosions. No radiopaque foreign body. IMPRESSION: Acute comminuted fracture involving the left distal radius involving the articular surface. This document has been electronically signed by: Jennifer Burch MD on 02/18/2025 21:39:03
--- NOTE | ~2025-02-18 | XR_ITS ---
CLINICAL HISTORY: trauma 3 view left elbow Comparison: None provided Findings: No acute fractures or dislocations. No significant arthritic change or erosions. No joint effusion. No radiopaque foreign body. IMPRESSION: 1. No acute findings. This document has been electronically signed by: Jennifer Burch MD on 02/18/2025 21:42:24
--- NOTE | ~2025-02-18 | XR_ITS ---
CLINICAL HISTORY: trauma 2 view left forearm Comparison: CR - XR HAND LT MIN 3V - 02/18/25 20:54 EDT Findings: Acute comminuted fracture involving the left distal radius involving the articular surface. No joint effusion. No significant arthritic change. No radiopaque foreign body. IMPRESSION: Acute comminuted fracture involving the left distal radius involving the articular surface. This document has been electronically signed by: Jennifer Burch MD on 02/18/2025 21:38:02
--- NOTE | ~2025-02-18 | XR_ITS ---
CLINICAL HISTORY: trauma 3 view left hand Comparison: None provided Findings: Acute comminuted fracture of the left distal radius involving the articular surface. No significant loss of joint space or osteophytes. No erosions. No radiopaque foreign body. IMPRESSION: Acute comminuted fracture of the left distal radius involving the articular surface. This document has been electronically signed by: Jennifer Burch MD on 02/18/2025 21:40:09
[2025-02-18 20:15] VITALS: BP 160/110; PULSE 122; O2SAT 97
[2025-02-18 20:19] VITALS: BP 148/95; PULSE 106; RESP 20; TEMP 36.8; O2SAT 96; BMI 41.3
--- OUTSIDE RECORDS SUMMARY | 2025-02-18 20:35 | XMS_ITS | Encounter Summary ---
Author Organization [employer] Address [address] [place] [address] Care Team Providers Care Duck Bill Operator Name Role Phone Car Pisano MD Primary Care Prov ider Reason for Visit * Reason Onset Date Comments Inmate Release 12/30/2022 Encounter Details Date Type Department Care Team ([facility] st Contact Info) Description 12/30/2022 Telephone [facility] [address], [place] [phone] Car Pisano MD [address] [place] [address] Inmate Release Social History Tobacco Use Types Packs/Day Years Used Date Smoking Tobacco: Never Assessed Sex and Gender Information Value Date Recorded Sex Assigned at Male 03/23/2022 10:15 AM EDT Legal Sex Male 10:15 AM EDT Gender Identity Male 05/28/2023 3:00 PM EST Sexual Orientation Straight 06/11/2023 10 :30 AM EST documented as of this encounter Miscellaneous Notes * Telephone Encounter - Denise Ibanez - 03/22/2023 3:22 PM EDT New Patients Par Denise Torre called to schedule New patient appt, pt did not answer left voicemail to give a call at [phone]. * Telephone Encounter - Kenny Erazo RN - 12/31/2022 3:45 PM EDT Received message below. Noted appt was cancelled? Please contact RN to update on reason for cancellation. Thank you. * Telephone Encounter - Sheralex Nicho Ibanez - 12/30/2022 9:42 AM EDT Tc from [facility] FADI VELASQUEZ requesting an appt for pt that is being released on 01/01/2023. Water Hauler check if pt is still active with the practice, and pt is still currently active; was last seen on 01/17/2020 with Provider Telesick appt. Pt is currently being treated for his liver, advised [facility] if any notes were involved in regards to the treatment to please be fax to [facility] provided # [phone]. Water Hauler booked pt on 02/01/2023 @ 2:15 PM for Follow up appt with provider. Please if any question contact [facility] at [phone]. documented in this encounter Plan of Treatment Not on file documented as of this encounter Visit Diagnoses Not on filedocumented in this encounter Care Teams Duck Bill Operator Relationship Specialty Start Date End Date MejiasCar De León MD [address] [place] [id number] PCP - General Internal Medicine 10/13/19 12/30/22 documented as of this encounter
--- OUTSIDE RECORDS SUMMARY | 2025-02-18 20:35 | XMS_ITS | Patient Health Record ---
Author Organization [facility] Address [address] [place] [address] Care Team Providers Care Supreme Court Justice Name Role Phone [facility] Primary Care Provider [phone] [facility] Unavailable [phone] Reason For Referral No Information Plan Of Treatment No Information Insurance Providers Payer Name Payer Address Payer Phone Subscriber Number Group Number Insured Name Patient Relationship to Insured Coverage Start Date Coverage End Date [place] C3 [address] [place], [place] [id number] Osvaldo Mcnamara Self - patient is the insured 3
--- OUTSIDE RECORDS SUMMARY | 2025-02-18 20:35 | XMS_ITS | Clinical Summary ---
Author Organization [facility] [employer] [facility] Address [address] [place] [address] Care Team Providers Care Siding Stapler Name Role Phone Unavailable Primary Care Provider [...] -pt missed apt w new PCP in [place]-pt will call to reschedule to f w [...] Years (1 of 2 - PCV) 2010 Tobacco Screening 06/11/2024 06/11/2023 COVID-19 Vaccine (2 - 2024-2 6 season) 2025 10/03/2020 Influenza Vaccine (#1) 2025 9, 03/18/2015 DTaP/Tdap/Td [...] patient's age to complete this topic [facility]
[2025-02-18] MEDS: oxyCODONE HCl Immed Release 5 MG TABLET 10 MG PO (20:43)
[2025-02-18 21:03] LABS: MANUAL DIFF FLAG NO
[2025-02-18 21:04] LABS: Hematocrit 43.0 % (42.0-52.0); Hemoglobin 14.3 g/dl (14.0-18.0); Imm Gran Abs Auto 0.03 X10*3/uL (0.00-0.03); Imm Gran Pct Auto 0.3 % (0.0-0.4); Lymphocytes Absolute Auto 1.4 X10*3/uL (1.2-4.9); Mean Corpuscular HGB Conc 33.3 g/dl (31.0-36.0); Mean Corpuscular Hemoglobin 28.0 pg (27.0-33.0); Mean Corpuscular Volume 84.3 fL (80.0-98.0); NRBC Abs Auto 0.000 X10*3/uL (0.0-0.012); NRBC Pct Auto 0.0 /100WBC (0.0-0.2); Platelet Count 274 X10*3/uL (160-400); Red Blood Count 5.10 X10*6/uL (4.60-5.80); White Blood Count 9.9 X10*3/uL (4.8-10.8)
[2025-02-18 21:23] LABS: Alanine Aminotransferase 42 U/L (0-40); Albumin Level 4.4 g/dL (3.5-5.0); Alkaline Phosphatase 87 U/L (39-117); Anion Gap 13 (12-20); Aspartate Amino Transferase 68 U/L (5-37); Blood Urea Nitrogen 12 mg/dL (9-16); Calcium 9.0 mg/dL (8.4-10.2); Carbon Dioxide 23 mmol/L (22-29); Chloride 107 mmol/L (96-108); Creatinine Clr Calc Pharmacy 142.8; Estimated Glomerular Filt Rate > 60; Magnesium 2.0 mg/dL (1.6-2.6); Potassium 4.2 mmol/L (3.3-5.1); Sodium 139 mmol/L (135-145); Total Protein 7.4 g/dL (6.5-8.0)
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
[2025-02-18 23:16] VITALS: BP 154/83; PULSE 113; RESP 20; TEMP 37.2; O2SAT 96
[2025-02-18 23:24] VITALS: BP 154/83; PULSE 113; RESP 20; TEMP 37.2; O2SAT 96
== END 2025-02-18 23:28 | disposition home or self-care (01) ==
PROVIDERS: Physician Assistant Medical; Emergency Provider Emergency Medicine
DX: S52.502A Unspecified fracture of the lower end of left radius, initial encounter for closed fracture (principal); M79.602 Pain in left arm; V19.9XXA Pedal cyclist (driver) (passenger) injured in unspecified traffic accident, initial encounter; Y93.29 Activity, other involving ice and snow; Y92.9 Unspecified place or not applicable; Y99.9 Unspecified external cause status
CPT/HCPCS: 29105; 36415; 73080; 73090; 73100; 73130; 80053; 83735; 85025; 96374; 96375; 99284; J1885; J3010

== ENCOUNTER → 2025-02-18 20:25 | Outpatient (BNV) | payer MEDICAID, SELFPAY | PROVIDERS: Emergency Provider Emergency Medicine; Visit Provider Student in an Organized Health Care Education/Training Program | DX: M25.522 Pain in left elbow (principal); M79.642 Pain in left hand; M79.602 Pain in left arm | CPT/HCPCS: 73080; 73090; 73110; 73130 ==

== ENCOUNTER 2025-02-20 13:00 | Outpatient (AMB) | payer MEDICAID, SELFPAY ==
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
--- OUTSIDE RECORDS SUMMARY | 2025-02-20 14:11 | XMS_ITS | Patient Health Record ---
Author Organization [facility] Address [address] [place] [address] Care Team Providers Care Machinist Instructor Name Role Phone [facility] Primary Care Provider [phone] [facility] Unavailable [phone] Reason For Referral No Information Plan Of Treatment No Information Insurance Providers Payer Name Payer Address Payer Phone Subscriber Number Group Number Insured Name Patient Relationship to Insured Coverage Start Date Coverage End Date ID Medicaid C3 [address] [place], [place] [id number] Osvaldo Mcnamara Self - patient is the insured 3
--- OUTSIDE RECORDS SUMMARY | 2025-02-20 14:11 | XMS_ITS | Encounter Summary ---
Author Organization [employer] Address [address] [place] [address] Care Team Providers Care Production Specialist Name Role Phone Car Pisano MD Primary Care Prov ider Reason for Visit * Reason Onset Date Comments Inmate Release 12/30/2022 Encounter Details Date Type Department Care Team ([facility] st Contact Info) Description 12/30/2022 Telephone [facility] [address] [place], [place] [id number] Car Pisano MD [address] [place] [address] Inmate Release Social History Tobacco Use Types [...] left voicemail to give a call at [phone]. * Telephone Encounter - Kenny Erazo RN - 12/31/2022 3:45 PM EDT Received message below. Noted appt was cancelled? Please contact RN to update on reason for cancellation. Thank you. * Telephone Encounter - Sheralex Nicho Ibanez - 12/30/2022 9:42 AM EDT Tc from [facility] FADI VELASQUEZ requesting an appt for pt that is being released on 01/01/2023. Arborist check if pt is still active with the practice, and pt is still currently active; was last seen on 01/17/2020 with Provider Telesick appt. Pt is currently being treated for his liver, advised [facility] if any notes were involved in regards to the treatment to please be fax to [facility] provided # [phone]. Arborist booked pt on 02/01/2023 @ 2:15 PM for Follow up appt with provider. Please if any question contact [facility] at [phone]. documented in this encounter Plan of Treatment Not on file documented as of this encounter Visit Diagnoses Not on filedocumented in this encounter Care Teams Production Specialist Relationship Specialty Start Date End Date MejiasCar De León MD [address] [place] [id number] PCP - General Internal Medicine 10/13/19 12/30/22 documented as of this encounter
--- OUTSIDE RECORDS SUMMARY | 2025-02-20 14:11 | XMS_ITS | Clinical Summary ---
Author Organization [facility] Address [address] [place] [address] Care Team Providers Care Button Broacher Name Role Phone Unavailable Primary Care Provider [...] -pt missed apt w new PCP in [place]-pt will call to reschedule to f w [...] patient's age to complete this topic [id number]
== END 2025-02-20 14:52 | disposition home or self-care (01) ==
LOC: HO.HOS 13:01
PROVIDERS: Visit Provider Orthopaedic Surgery
DX: S52.502A Unspecified fracture of the lower end of left radius, initial encounter for closed fracture (principal)
CPT/HCPCS: 29125; 99204

== ENCOUNTER 2025-02-20 13:00 | Outpatient (REF) | payer MEDICAID, SELFPAY ==
--- NOTE | ~2025-02-20 | XR_ITS ---
EXAMINATION: XR WRIST 3 OR MORE VIEWS LEFT HISTORY: M25.532 - Pain in left wrist COMPARISON: Comparison is made with the prior examination dated 02/10/2025. FINDINGS: Three views of the left wrist are submitted. Osseous mineralization is normal. Again seen is a comminuted intra-articular fracture of the distal radius. The fracture lines remain visible. The joint spaces are preserved. There is diffuse soft tissue swelling. XR/XR wrist LT min 3V IMPRESSION: Comminuted intra-articular fracture of the distal radius without change. Electronically signed by: Harish Mcclelland MD 02/20/2025 02:06 PM EDT
== END 2025-02-20 13:01 | disposition home or self-care (01) ==
LOC: HO.HOSX 13:00
PROVIDERS: Visit Provider Orthopaedic Surgery
DX: S52.502A Unspecified fracture of the lower end of left radius, initial encounter for closed fracture (principal); V28.09XA Other motorcycle driver injured in noncollision transport accident in nontraffic accident, initial encounter
CPT/HCPCS: 29125; 73110; 99202

== ENCOUNTER → 2025-02-20 13:51 | Outpatient (BNV) | payer MEDICAID, SELFPAY | PROVIDERS: Visit Provider Radiology Diagnostic Radiology | DX: S52.572D Other intraarticular fracture of lower end of left radius, subsequent encounter for closed fracture with routine healing (principal) | CPT/HCPCS: 73110 ==

== ENCOUNTER 2025-02-23 11:51 | Day surgery (SDC) | payer MEDICAID, SELFPAY ==
--- NOTE | 2025-02-22 08:07 | HO.ANESPROP2 ---
Documented by User: Leela Rai NP 02/22/25 08:08 HPI - Anesthesia Eval Consult details Narrative: 34yo M for Left Wrist ORIF, distal radius PMFSH Active Problems Active Problems: All Active Problems Closed fracture of distal end of left radius (Acute) S/P laparoscopic cholecystectomy (Acute) Acute cholecystitis (Acute) Past Medical History Medical History HTN (hypertension) Cholelithiasis Obesity Family History Family History Mother History of cholecystectomy Father No problems noted. Brother No problems noted. Brother No problems noted. Sister No problems noted. Sister No problems noted. Daughter No problems noted. Surgical History Surgical History No pertinent past surgical history Social History Social History Household Members: Family Housing: House Alcohol intake: current Alcohol intake frequency: a few times a month Alcohol type: hard liquor Patient Tobacco Use Status: Current everyday Tobacco user Tobacco use type: Cigarette Cigarette Packs Per Day: 0.5 Cigarettes Per Day: 10.0 Use of substances other than those prescribed or required for medical reasons: Yes Substance Use Type: Marijuana Substance Use Frequency: Occasionally Advance Directives: No Advance Directives Information Provided: Yes Advance Directives Date on File: 06/26/20 service: No Current occupational status: unemployed Current occupation: [employer] Meds Allergies Allergy/AdvReac Type Severity Reaction Status Date / Time aspirin (ASPIRIN) Allergy Unknown STOMACH Verified 02/20/25 13:29 UPSET morphine (MORPHINE) Allergy Unknown RASH Verified 02/20/25 13:29 Exam Pertinent Lab Results Pertinent Lab Results: Laboratory Tests 02/18/25 20:59 WBC 9.9 Hgb 14.3 Hct 43.0 Plt Count 274 Sodium 139 Potassium 4.2 Chloride 107 Carbon Dioxide 23 BUN 12 Creatinine 0.97 Narrative Narrative: EKG 12/2024 Vent. Rate : 96 BPM Atrial Rate : 96 BPM P-R Int : 150 ms QRS Dur : 96 ms QT Int : 352 ms P-R-T Axes : 40 -4 9 degrees QTcB Int : 444 ms Normal sinus rhythm Minimal voltage criteria for LVH, may be normal variant ( R in aVL ) Borderline ECG When compared with ECG of 28-Dec-2024 22:03, No significant change was found Assessment and Plan Assessment Anesthesia Assessment: Chart Reviewed Documented by User: Mikaela Gutierrez MD 02/23/25 13:16 [facility] Past Medical History Medical History HTN (hypertension) Cholelithiasis Obesity Family History Family History Mother History of cholecystectomy Father No problems noted. Brother No problems noted. Brother No problems noted. Sister No problems noted. Sister No problems noted. Daughter No problems noted. Surgical History Surgical History No pertinent past surgical history History of Problems with Anesthesia: No Social History Social History Household Members: Family Housing: House Alcohol intake: current Alcohol intake frequency: a few times a month Alcohol type: hard liquor Patient Tobacco Use Status: Current everyday Tobacco user Tobacco use type: Cigarette Cigarette Packs Per Day: 0.5 Cigarettes Per Day: 10.0 Use of substances other than those prescribed or required for medical reasons: Yes Substance Use Type: Marijuana Substance Use Frequency: Occasionally Advance Directives: No Advance Directives Information Provided: Yes Advance Directives Date on File: 06/26/20 service: No Current occupational status: unemployed Current occupation: [employer] Meds Allergies Allergy/AdvReac Type Severity Reaction Status Date / Time aspirin (ASPIRIN) Allergy Unknown STOMACH Verified 02/20/25 13:29 UPSET morphine (MORPHINE) Allergy Unknown RASH Verified 02/20/25 13:29 Exam Airway Mallampati Class: III (underbite) TM Dist: >3cm Neck ROM: Full Loose/Missing/Broken Teeth: No Heart: RRR Lungs: CTA Assessment and Plan Assessment Anesthesia Assessment: Anesthesia Plan Discussed Final Anesthetic Review History of Problems with Anesthesia: No NPO: Yes ASA Class: III Final Preanesthetic Review: Meds/Allgs Chart Reviewed, Consent Obtained/Reviewed and Anes Risks/Benef Reviewed Patient Risk: Intermediate Procedure Risk: Low Anesthetic Plan Anesthetic Plan: GA Disposition: Standard PACU
--- NOTE | ~2025-02-23 | FL_ITS ---
EXAMINATION: FL GUIDANCE ONLY HISTORY: RADIUS DISTAL FRACTURE ORIF COMPARISON: Correlation is made with plain films of the left wrist dated 02/20/2025. TECHNIQUE: Fluoroscopy time: 43.2 seconds. Cumulative Dose: 1.6585 mGy. DAP: 0.1002 Gycm2 Images: 6. FINDINGS: Fluoroscopic spot films of the left wrist demonstrate internal fixation of the previously seen comminuted intertrochanteric fracture of the distal radius with a sideplate and multiple orthopedic screws. FL/FL guidance in OR IMPRESSION: Fluoroscopy during procedure. Please see procedure report for additional information. Electronically signed by: Harish Mcclelland MD 02/26/2025 07:15 AM EDT
[2025-02-23 12:22] VITALS: BMI 43.2
[2025-02-23] MEDS: Lactated Ringers 1,000 ML 100 ML IVCONT (12:48)
--- NOTE | 2025-02-23 13:57 | P.OP_ITS ---
Operative Note Operative Note Date of Service: 02/23/25 Narrative: Operative Note Narrative: Preop diagnosis: 1. Left Distal radius fracture Postop diagnosis: Same Procedure: 1. Left Distal radius fracture open reduction internal fixation Surgeon: Joana Tinajero MD Engineer Steam: None Anesthesia: General anesthesia plus regional block Findings: Left distal radius fracture with an longitudinal intra-articular split Implants: A 3 hole Accu Med volar locking plate, with 5 X 2.3 mm locking pegs/screws, and 3 3.5 mm cortical screws Tourniquet time: 46 minutes EBL: 5.0 ml Specimen: None Drains: None Complications: None Disposition: Brought to the recovery room in stable condition Plan: Follow-up in 10-14 days for wound check, suture removal and postop radiographs The patient will be placed in either a short-arm cast . Encouraged no lifting of anything heavier than a cell phone. Please encourage active and passive range of motion of the digits. Follow-up at 4-5 weeks postop for repeat radiographs. Indications: The patient is a 34 year old man with left distal radius fracture . The risks and benefits of operative treatment, including but not limited to risk of damage to blood vessels, nerves, tendons, infection, recurrence, persistent pain or numbness, incomplete resolution of preoperative symptoms, or need for further surgery were discussed with the patient and they wished to proceed with surgery. Procedure: Once consent was obtained patient was brought back to the operating suite and placed in the operating table in a supine position. A regional block was performed by the anesthesia team. Perioperative antibiotics and anesthesia was administered by the anesthesia team. A tourniquet was applied to the proximal aspect of the left upper extremity and the limb was prepped and draped in a standard surgical fashion. The limb was elevated exsanguinated with Esmarch bandage and the tourniquet inflated to 250 mm of mercury for a total tourniquet time of 46 minutes. The FluoroScan was used throughout the case to assess our reduction, and facilitate implant placement. A gentle closed reduction was 1st performed on the patient's left distal radius fracture. Was assessed radiographically before proceeding with the reduction internal fixation. I then made an 8 cm longitudinal incision over the distal aspect of the flexor carpi radialis tendon. The incision was made through the skin to the subcutaneous tissue using a 15. Blade. Then carefully dissected down to flexor carpi radialis tendon she tenotomy scissors. The FCR tendon sheath was then incised longitudinally using tenotomy scissors under direct visualization. The FCR tendon was then retracted ulnarly. I then made a longitudinal incision in the volar forearm fascia through the floor of FCR tendon sheath using tenotomy scissors under direct vi sualization. I identified the interval between the radial artery and the flexor tendons. This interval was developed further with my index finger, releasing some of the muscular fibers of the flexor pollicis longus. A dull weatlander retractor was then placed. I then created an ulnarly based flap of the pronator quadratus by releasing the radial and distal edges using a 15. Blade. A Fan elevator was used to elevate the pronator quadratus from the volar surface of the distal radius. This then revealed to us our distal radius fracture. An open reduction was then performed on our distal radius fracture. I then placed a short standard 3 hole Accu Med volar locking plate on the volar surface of the distal radius. I placed a single K-wire through the distal aspect of the plate and into the distal radius. This was assessed using fluoroscopic images. I was satisfied with the placement of our plate. I then placed 5 X 2.3 mm locking screws/pegs in the distal aspect of the plate and distal radius by 1st drilling bicortically with a 2.0 mm drill bit, measuring with a depth gauge, and placing the appropriate length locking screws/pegs. The placement of our plate and screws was then assessed again using fluoroscopic images. The once satisfied with the placement of the volar locking plate and screws on the distal aspect of the distal radius, the plate was then reduced to the shaft of the radius. I then placed 3 X 3.5 mm cortical screws to the proximal aspect of the plate and into the shaft of the radius. This was done by 1st drilling bicortically with a 2.8 mm drill bit, measuring with a depth gauge, and placing the appropriate length screw. Final radiographs were then obtained. The DRUJ was assessed and found to be stable on exam. I was satisfied with our reduction and placement of all implants. At this point the wound was irrigated with normal saline. The pronator quadratus was reduced back over the volar locking plate using some 3-0 Vicryl suture material. The tourniquet was then deflated and hemostasis was obtained with a brief period of local pressure and bipolar monopolar electrocautery. The subcutaneous layer was then reapproximated using some 4-0 Vicryl suture, and the skin edges were reapproximated using some 5 0 Prolene suture. The wound was then infiltrated with some 1% lidocaine with epinephrine postop pain control. A sterile dressing and a short dorsal splint allowing for active flexion and extension of the digits was applied. The patient appears to have tolerated the procedure well and with no complications. All digits were well vascularized conclusion of the case.
--- NOTE | 2025-02-23 13:57 | MHC.SHP ---
Pre-Procedural Eval Section A - 24 Hr Update-Section A only Date of Service: 02/23/25 The patient is an INPATIENT: No Changes since office visit: No Cold of Flu in the past 2 weeks, No New Medical Problems, No Changes in Medication and No Patient answered all questions The patient has been examined within 24 hours of the surgical procedure. The History & Physical has been completed within 30 days and I have reviewed it.: Yes Section B - Complete if H&P > 30 days Chief Complaint: Unspecified fracture of the lower end of left radi Allergies: Allergies Allergy/AdvReac Type Severity Reaction Status Date / Time aspirin (ASPIRIN) Allergy Unknown STOMACH Verified 02/20/25 13:29 UPSET morphine (MORPHINE) Allergy Unknown RASH Verified 02/20/25 13:29 Plan I have reviewed the history and physical and performed a pertinent physical examination on my patient. No changes have occurred unless specified. Time Spent With Patient Time: Total time managing care of this patient today ____ minutes.
[2025-02-23 16:24] VITALS: BP 111/49; PULSE 79; RESP 17; TEMP 36.5; O2SAT 94
[2025-02-23 16:29] VITALS: BP 112/60; PULSE 84; RESP 16; O2SAT 93
[2025-02-23 16:34] VITALS: BP 114/62; PULSE 82; RESP 14; O2SAT 95
[2025-02-23 16:39] VITALS: BP 107/55; PULSE 77; RESP 14; O2SAT 95
[2025-02-23 16:54] VITALS: BP 109/67; PULSE 73; RESP 16; TEMP 36.3; O2SAT 95
== END 2025-02-23 17:21 | disposition home or self-care (01) ==
PROVIDERS: Visit Provider Orthopaedic Surgery
PROC: (CPT 25608; principal; 2025-02-23 13:40)
DX: S52.572A Other intraarticular fracture of lower end of left radius, initial encounter for closed fracture (principal); M25.532 Pain in left wrist; V86.56XA Driver of dirt bike or motor/cross bike injured in nontraffic accident, initial encounter; Y93.55 Activity, bike riding; Y92.9 Unspecified place or not applicable; Y99.9 Unspecified external cause status; I10 Essential (primary) hypertension; K80.20 Calculus of gallbladder without cholecystitis without obstruction; E66.9 Obesity, unspecified; Z79.899 Other long term (current) drug therapy; Z88.5 Allergy status to narcotic agent; Z88.6 Allergy status to analgesic agent; F17.210 Nicotine dependence, cigarettes, uncomplicated
CPT/HCPCS: 25608; C1713; J0131; J0665; J0690; J1100; J2003; J2004; J2371; J3010

== ENCOUNTER → 2025-02-23 11:51 | Outpatient (BNV) | payer MEDICAID, SELFPAY | PROVIDERS: Visit Provider Orthopaedic Surgery | DX: S52.592A Other fractures of lower end of left radius, initial encounter for closed fracture (principal) | CPT/HCPCS: 25607 ==

== ENCOUNTER 2025-03-01 14:32 | Outpatient (AMB) | payer MEDICAID, SELFPAY ==
--- NOTE | 2025-03-01 14:45 | MHC.OFFVIS ---
Intake Visit Reasons: PO-Lt Distal Radius ORIF 02/23/25- splint change Intake Note: Osvaldo is a 34 year old male who presents today for a splint change after he underwent a left distal radius ORIF on 02/23/25. Patient reports tightness in his cast, making it uncomfortable. Allergies aspirin (ASPIRIN) Allergy (Unknown, Verified 03/01/25 14:46) STOMACH UPSET morphine (MORPHINE) Allergy (Unknown, Verified 03/01/25 14:46) RASH HPI HPI PO-Lt Distal Radius ORIF 02/23/25- splint change: Details: Patient presents to the office today status post ORIF left distal radius 02/23/[address] Tinajero. He comes in today stating this splint is uncomfortable. [facility] Medical History HTN (hypertension) Cholelithiasis Obesity Surgical History No pertinent past surgical history Family History Mother History of cholecystectomy Father No problems noted. Brother No problems noted. Brother No problems noted. Sister No problems noted. Sister No problems noted. Daughter No problems noted. Social History Household Members: Family Housing: House Alcohol intake: current Alcohol intake frequency: a few times a month Alcohol type: hard liquor Patient Tobacco Use Status: Current everyday Tobacco user Tobacco use type: Cigarette Cigarette Packs Per Day: 0.5 Cigarettes Per Day: 10.0 Substance Use Type: Marijuana Advance Directives Date on File: 06/26/20 service: No Current occupational status: unemployed Current occupation: [employer] Review of Systems Const All systems reviewed & are unremarkable except as noted in HPI and below Office Procedures Casting/Splints 43721-[place] Splint Application Procedure code (CPT) selection complete Assessment & Plan Assessment & Plan (1) Closed fracture of distal end of left radius: Code(s): S52.502A - Unspecified fracture of the lower end of left radius, initial encounter for closed fracture Category: Medical Plan: Spoke with Dr. Tinajero over the phone and confirmed the patient is to be placed in a dorsal blocking custom molded splint. Patient will follow up for his routine postop appointment on 03/07/2025. Coding Level of Care Code Global (30152) Diagnoses Closed fracture of distal end of left radius S52.502A CPT Codes Splint - CPT: 17961-Dxmchhg Splint Application ([id number])
== END 2025-03-01 15:42 | disposition home or self-care (01) ==
LOC: HO.HOS 14:33
PROVIDERS: Visit Provider Physician Assistant
DX: S52.502A Unspecified fracture of the lower end of left radius, initial encounter for closed fracture (principal)
CPT/HCPCS: 29125; 99024

== ENCOUNTER → 2025-03-01 14:32 | Outpatient (BNVA) | payer MEDICAID, SELFPAY | PROVIDERS: Visit Provider Physician Assistant | DX: S52.502A Unspecified fracture of the lower end of left radius, initial encounter for closed fracture (principal) | CPT/HCPCS: 29125; 99212 ==

== ENCOUNTER 2025-03-07 08:13 | Outpatient (REF) | payer MEDICAID, SELFPAY ==
--- NOTE | ~2025-03-07 | XR_ITS ---
EXAMINATION: XR WRIST 3 OR MORE VIEWS LEFT HISTORY: M25.532 - Pain in left wrist COMPARISON: Comparison is made with the prior examination dated 02/20/2025. FINDINGS: Three views of the left wrist are submitted. Osseous mineralization is normal. The patient is status post internal fixation of the previously noted comminuted intra-articular fracture of the distal radius with a sideplate and multiple orthopedic screws. Alignment is anatomic. The fracture lines remain visible. The joint spaces are preserved. There is soft tissue swelling. XR/XR wrist LT min 3V IMPRESSION: Internal fixation of the previously seen comminuted intra-articular fracture of the distal radius. Electronically signed by: Harish Mcclelland MD 03/07/2025 02:40 PM EDT
--- OUTSIDE RECORDS SUMMARY | 2025-03-08 08:27 | XMS_ITS | Clinical Summary ---
Author Organization [facility] [employer] [facility] Address [address] [place] [address] Care Team Providers Care Lining Vamper Name Role Phone Unavailable Primary Care Provider [...] -pt missed apt w new PCP in [place]-pt will call to reschedule to f w [...] patient's age to complete this topic Insurance [facility]
--- OUTSIDE RECORDS SUMMARY | 2025-03-08 08:27 | XMS_ITS | Patient Health Record ---
Author Organization [facility] Address [address] [place] [address] Care Team Providers Care Dull Coat Mill Operator Name Role Phone [facility] Primary Care Provider [facility], [facility] Unavailable [phone] Reason For Referral No Information Plan Of Treatment No Information Insurance Providers Payer Name Payer Address Payer Phone Subscriber Number Group Number Insured Name Patient Relationship to Insured Coverage Start Date Coverage End Date [place] Medicaid C3 [address] [place], [place] [id number] Osvaldo Mcnamara Self - patient is the insured 3
--- OUTSIDE RECORDS SUMMARY | 2025-03-08 08:27 | XMS_ITS | Encounter Summary ---
Author Organization [employer] Address [address] [facility] 7t [place] [address] Care Team Providers Care Will Call Clerk Name Role Phone Car Pisano MD Primary Care Prov ider Reason for Visit * Reason Onset Date Comments Inmate Release 12/30/2022 Encounter Details Date Type Department Care Team ([facility] st Contact Info) Description 12/30/2022 Telephone [facility] CHC MED & PEDS [address] [place], [place] [phone] Car Pisano MD [address] [place] [address] Inmate Release Social History Tobacco Use Types [...] left voicemail to give a call at [phone]. * Telephone Encounter - Kenny Erazo RN - 12/31/2022 3:45 PM EDT Received message below. Noted appt was cancelled? Please contact RN to update on reason for cancellation. Thank you. * Telephone Encounter - Sheralex Nicho Ibanez - 12/30/2022 9:42 AM EDT Tc from [facility]I VELASQUEZ requesting an appt for pt that is being released on 01/01/2023. Conductor Yard check if pt is still active with the practice, and pt is still currently active; was last seen on 01/17/2020 with Provider Telesick appt. Pt is currently being treated for his liver, advised [facility] if any notes were involved in regards to the treatment to please be fax to [facility] provided # [phone]. Conductor Yard booked pt on 02/01/2023 @ 2:15 PM for Follow up appt with provider. Please if any question contact [facility] at [phone]. documented in this encounter Plan of Treatment Not on file documented as of this encounter Visit Diagnoses Not on filedocumented in this encounter Care Teams Will Call Clerk Relationship Specialty Start Date End Date MejiasCar De León MD [address] [place] [id number] PCP - General Internal Medicine 10/13/19 12/30/22 documented as of this encounter
== END 2025-03-07 08:14 | disposition home or self-care (01) ==
LOC: HO.HOSX 08:13
PROVIDERS: Visit Provider Orthopaedic Surgery
DX: S52.572D Other intraarticular fracture of lower end of left radius, subsequent encounter for closed fracture with routine healing (principal); V86.56XD Driver of dirt bike or motor/cross bike injured in nontraffic accident, subsequent encounter
CPT/HCPCS: 73110; 99212

== ENCOUNTER 2025-03-07 13:13 | Outpatient (AMB) | payer MEDICAID, SELFPAY ==
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
--- OUTSIDE RECORDS SUMMARY | 2025-03-07 16:55 | XMS_ITS | Patient Health Record ---
Author Organization [employer] Address [address] [place] [address] Care Team Providers Care Veneer Clipper Helper Name Role Phone [facility] Primary Care Provider [facility], [facility] Unavailable [phone] Reason For Referral No Information Plan Of Treatment No Information Insurance Providers Payer Name Payer Address Payer Phone Subscriber Number Group Number Insured Name Patient Relationship to Insured Coverage Start Date Coverage End Date [place] Medicaid C3 [address] [place], [place] [id number] Osvaldo Mcnamara Self - patient is the insured 3
--- OUTSIDE RECORDS SUMMARY | 2025-03-07 16:55 | XMS_ITS | Clinical Summary ---
Author Organization [facility] [employer] [facility] Address [address] [place] [address] Care Team Providers Care Antenna Engineer Name Role Phone Unavailable Primary Care Provider [...] -pt missed apt w new PCP in [place]-pt will call to reschedule to f w [...] patient's age to complete this topic [facility]
--- OUTSIDE RECORDS SUMMARY | 2025-03-07 16:55 | XMS_ITS | Encounter Summary ---
Author Organization [employer] Address [address] [place] [address] Care Team Providers Care Brand Marketing Manager Name Role Phone Car Pisano MD Primary Care Prov ider Reason for Visit * Reason Onset Date Comments Inmate Release 12/30/2022 Encounter Details Date Type Department Care Team ([facility] st Contact Info) Description 12/30/2022 Telephone [facility] [address], [place] [phone] Car Pisano MD [address] [place] [address] Inmate Release Social History Tobacco Use Types [...] left voicemail to give a call at [phone]. * Telephone Encounter - Kenny Erazo RN - 12/31/2022 3:45 PM EDT Received message below. Noted appt was cancelled? Please contact RN to update on reason for cancellation. Thank you. * Telephone Encounter - Sheralex Nicho Ibanez - 12/30/2022 9:42 AM EDT Tc from [facility]ADI VELASQUEZ requesting an appt for pt that is being released on 01/01/2023. [facility] Unloader check if pt is still active with the practice, and pt is still currently active; was last seen on 01/17/2020 with Provider Telesick appt. Pt is currently being treated for his liver, advised [facility] if any notes were involved in regards to the treatment to please be fax to [facility] HIM provided # [phone]. [employer] Unloader booked pt on 02/01/2023 @ 2:15 PM for Follow up appt with provider. Please if any question contact [facility] at [phone]. documented in this encounter Plan of Treatment Not on file documented as of this encounter Visit Diagnoses Not on filedocumented in this encounter Care Teams Brand Marketing Manager Relationship Specialty Start Date End Date MejiasCar De León MD [address] [place] [id number] PCP - General Internal Medicine 10/13/19 12/30/22 documented as of this encounter
== END 2025-03-07 14:43 | disposition home or self-care (01) ==
LOC: HO.HOS 13:14
PROVIDERS: Visit Provider Orthopaedic Surgery
DX: S52.502A Unspecified fracture of the lower end of left radius, initial encounter for closed fracture (principal)
CPT/HCPCS: 99024

== ENCOUNTER → 2025-03-07 13:42 | Outpatient (BNV) | payer MEDICAID, SELFPAY | PROVIDERS: Visit Provider Radiology Diagnostic Radiology | DX: M25.532 Pain in left wrist (principal) | CPT/HCPCS: 73110 ==

== ENCOUNTER 2025-03-17 03:28 | Emergency (ER) | payer MEDICAID, SELFPAY ==
--- NOTE | ~2025-03-17 | XR_ITS ---
CLINICAL HISTORY: pain, took cast off s p orif LEFT WRIST X-RAYS COMPARISON: 03/07/2025. FINDINGS: A total of 3 views of the left wrist were obtained. Surgical plate and screws are again noted transfixing a comminuted fracture involving the distal radius. Alignment is satisfactory. No evidence of hardware failure. Fracture lines remain visible. No bridging callus. No evidence of an acute fracture or dislocation. IMPRESSION: 1. No significant interval change since the previous study. Postoperative changes are again noted involving the distal left radius, as detailed above. No evidence of hardware failure This document has been electronically signed by: Femi Lowe M.D. on 03/17/2025 05:32:56
[2025-03-17 03:30] VITALS: BP 160/98; PULSE 106; O2SAT 96
[2025-03-17 03:32] VITALS: BMI 36.9
[2025-03-17 03:36] VITALS: BP 145/94; PULSE 97; RESP 16; TEMP 36.7; O2SAT 96
--- OUTSIDE RECORDS SUMMARY | 2025-03-17 03:55 | XMS_ITS | Clinical Summary ---
Author Organization [facility] [employer] [facility] Address [address] [facility] [facility] [address] 7t [place] [address] Care Team Providers Care Sample Taker Operator Name Role Phone Unavailable Primary Care Provider [...] -pt missed apt w new PCP in [place]-pt will call to reschedule to f w [...] patient's age to complete this topic Insurance [facility] [employer] C3
--- OUTSIDE RECORDS SUMMARY | 2025-03-17 03:55 | XMS_ITS | Patient Health Record ---
Author Organization [facility] Address [address] [place] [address] Care Team Providers Care Timber Girdler Name Role Phone [facility] Primary Care Provider [phone] [facility] Unavailable [phone] Reason For Referral No Information Plan Of Treatment No Information Insurance Providers Payer Name Payer Address Payer Phone Subscriber Number Group Number Insured Name Patient Relationship to Insured Coverage Start Date Coverage End Date [place] Medicaid C3 [address] [place], [place] [id number] Osvaldo Mcnamara Self - patient is the insured 3
--- OUTSIDE RECORDS SUMMARY | 2025-03-17 03:55 | XMS_ITS | Encounter Summary ---
Author Organization [employer] Address [address] [facility] 7t [place] [address] Care Team Providers Care Hair And Makeup Designer Name Role Phone Car Pisano MD Primary Care Prov ider Reason for Visit * Reason Onset Date Comments Inmate Release 12/30/2022 Encounter Details Date Type Department Care Team ([facility] st Contact Info) Description 12/30/2022 Telephone [facility] CHC MED & PEDS [address] [place], [place] [phone] Car Pisano MD [address] [place] [address] Inmate Release Social History Tobacco Use Types [...] left voicemail to give a call at [phone]. * Telephone Encounter - Kenny Erazo RN - 12/31/2022 3:45 PM EDT Received message below. Noted appt was cancelled? Please contact RN to update on reason for cancellation. Thank you. * Telephone Encounter - Sheralex Nicho Ibanez - 12/30/2022 9:42 AM EDT Tc from [facility] [address] [facility]I VELASQUEZ requesting an appt for pt that is being released on 01/01/2023. Network Security Officer check if pt is still active with the practice, and pt is still currently active; was last seen on 01/17/2020 with Provider Telesick appt. Pt is currently being treated for his liver, advised [facility] if any notes were involved in regards to the treatment to please be fax to [facility] provided # [phone]. Network Security Officer booked pt on 02/01/2023 @ 2:15 PM for Follow up appt with provider. Please if any question contact [facility] at [phone]. documented in this encounter Plan of Treatment Not on file documented as of this encounter Visit Diagnoses Not on filedocumented in this encounter Care Teams Hair And Makeup Designer Relationship Specialty Start Date End Date MejiasCar De León MD [address] [place] [phone] PCP - General Internal Medicine 10/13/19 12/30/22 documented as of this encounter
--- NOTE | 2025-03-17 04:05 | ED_ITS ---
HPI - Extremity Problem General Chief complaint: Extremity Injury, Upper Stated complaint: R arm pain Time Seen by Provider: 03/17/25 03:31 Source: patient and EMS Mode of arrival: EMS Limitations: no limitations History of Present Illness ED Provider: Dr. Peral Erickson HPI Narrative: Patient comes to the emergency room via ambulance stating that his cast on his left hand is too tight. Patient had ORIF with done on 02/23/2025. Patient states that his cast is too tight and he took it off by himself. Related Data Allergies Allergy/AdvReac Type Severity Reaction Status Date / Time aspirin (ASPIRIN) Allergy Unknown STOMACH Verified 03/17/25 03:33 UPSET morphine (MORPHINE) Allergy Unknown RASH Verified 03/17/25 03:33 Review of Systems Review of Systems: Constitutional : No Weight loss, No Fever, No Chills, No Night Sweats, No Fatigue, No Malaise ENT/Mouth : No Hearing loss, No Ear Pain, No Nasal Congestion, No Sinus Pain, No Hoarseness, No sore throat, No Rhinorrhea, No Swallowing Difficulty Eyes: No Eye Pain, No Swelling, No Redness, No Foreign Body, No Discharge, No Vision Changes Cardiovascular : No Chest Pain, No SOB, No Dyspnea on Exertion, No Orthopnea, No Edema, No Palpitations Respiratory : No Cough, No Sputum, No Wheezing, No Smoke Exposure, No Dyspnea Gastrointestinal : No Nausea, No Vomiting, No Diarrhea, No Constipation, No abdominal Pain, No Hematochezia, No Melena Genitourinary : no irregular bleeding, No Dysuria, No Urinary Frequency, No Hematuria, No Urinary Incontinence, No Urgency, No Flank Pain, No Urinary Flow Changes, No Hesitancy Musculoskeletal : Complaining of left wrist pain and took his own cast off Skin : No Skin Lesions, No rash Neuro : No Weakness, No Numbness, No Paresthesias, No Loss of Consciousness, No Dizziness, No Headache Psych : No Anxiety/Panic, No Depression, No SI/HI/AH/VH, No Social Issues, Heme/Lymph: No Bruising, No Bleeding,No Lymphadenopathy Endocrine : No Polyuria, No Polydipsia, No Temperature Intolerance PMFSH Past Medical History Medical History HTN (hypertension) Cholelithiasis Obesity Surgical History No pertinent past surgical history Family History Family History Mother History of cholecystectomy Father No problems noted. Brother No problems noted. Brother No problems noted. Sister No problems noted. Sister No problems noted. Daughter No problems noted. Social History Social History Household Members: Family Housing: House Alcohol intake: current Alcohol intake frequency: a few times a month Alcohol type: hard liquor Patient Tobacco Use Status: Current everyday Tobacco user Tobacco use type: Cigarette Cigarette Packs Per Day: 0.5 Cigarettes Per Day: 10.0 Substance Use Type: Marijuana Advance Directives: Yes Advance Directives on File: Yes Advance Directives Date on File: 06/26/20 service: No Current occupational status: unemployed Current occupation: [employer] Physical Exam Exam: Exam: Appearance: Alert. Oriented X3. No acute distress. Patient arrives watching movies on his phone. Eyes: Pupils equal, round and reactive to light. ENT: Pharynx normal. Neck: Normal inspection. Neck supple. No lymph nodes noted. No crepitus CVS: Normal heart rate and rhythm. Pulses normal. Normal S1 and S2 Respiratory: No respiratory distress. Breath sounds normal. No Wheezing. No rales Abdomen: Soft and nontender. No rigidity. No distention. Skin: Skin warm and dry. Normal skin color. Normal skin turgor. Extremities: No lower extremity edema. No Lacerations. No Rash, patient took his cast off. Patient has good radial pulses bilaterally, no swelling, no ecchymosis, patient able to flex and extend all fingers with normal range of motion. Neuro: Oriented X 3. No motor deficit. No sensory deficit. Moving all extremities. No slurred speech. CN 2 through 12 grossly intact Psych: calm, cooperative, normal affect Vital Signs: Vital Signs: Last Vital Signs Temp 98.1 F 03/17/25 04:37 Pulse 97 03/17/25 04:37 Resp 16 03/17/25 04:37 BP 145/94 H 03/17/25 04:37 Pulse Ox 96 03/17/25 04:37 O2 Del Method Room Air 03/17/25 04:37 BMI result Body Mass Index 36.9 Medical Decision Making Medical Decision Making [facility] Narrative: I reviewed patient's records, seems that after his ORIF, which was done on February 23, 2025, had an orthopedics appointment on March 01. In the appointment, seems that patient was complaining of tightness of the splint. Which was resplinted. The patient had a follow-up appointment on the . Today, patient comes with the same complaint. However, this time he pulled out all the padding and pulled his own cast off. This is the 2nd time that patient has a same problem. X-rays were repeated. I reviewed the images, there is no acute abnormality, internal fixation of the left wrist looks the same as in previous x-ray of March 07 Patient's arm was put in a volar splint. Patient requesting a cast. I discussed with the patient that at this time we will not be doing a cast which we do not usually do from the emergency department. Patient can call or thopedics tomorrow and they can determine if he needs to have a cast placed again. After the splint was placed, I rechecked patient's radial pulses, capillary refills and sensation. All normal I discussed with the patient that he needs to follow-up with orthopedics. Patient understands. Use before discharge, I saw the patient taking off the bandages of the splint and doing his own thing. We double-checked that the Willis wraps are not too tight. Discussed with the patient that he needs to leave it in place took void movement otherwise his arm will not heal. Patient states that he understands. After the patient got discharged, I was informed by the patient's nurse that he took completely off the splint, states that it felt too warm and did not like the sensation. Independent Interpretation I performed an independent interpretation of an: Plain X-Ray Discharge Plan Discharge Clinical Impression: Cast discomfort Patient Disposition: Home, Self-Care Instructions: Wrist Fracture in Adults (ED), ORIF of a Wrist Fracture (DC) Referrals: Mike Burden PA-C [Physician Client Retention Specialist, Orthopedics] Interventions: ED Discharge Assessment Last Done: 03/17/25 04:37 Discharge Date/Time: 03/17/25 04:38 Print Language: [place]
--- NOTE | 2025-03-17 04:34 | PC.NURSE ---
pt removed ortho glass splint that placed less than 45 minutes ago. states it was wet and uncomfortable. MD aware. not recasting at this point. pt instructed to f/u with ortho
[2025-03-17 04:37] VITALS: BP 145/94; PULSE 97; RESP 16; TEMP 36.7; O2SAT 96
== END 2025-03-17 04:38 | disposition home or self-care (01) ==
PROVIDERS: Emergency Provider Emergency Medicine; PCP Nurse Practitioner Family
DX: M25.532 Pain in left wrist (principal); Z47.89 Encounter for other orthopedic aftercare; Z91.199 Patient's noncompliance with other medical treatment and regimen due to unspecified reason
CPT/HCPCS: 73110; 99283

== ENCOUNTER → 2025-03-17 03:39 | Outpatient (BNV) | payer MEDICAID, SELFPAY | PROVIDERS: Emergency Provider Emergency Medicine; PCP Nurse Practitioner Family; Visit Provider Radiology Diagnostic Radiology | DX: S52.502D Unspecified fracture of the lower end of left radius, subsequent encounter for closed fracture with routine healing (principal); Z98.890 Other specified postprocedural states | CPT/HCPCS: 73110 ==

== ENCOUNTER 2025-03-19 10:01 | Outpatient (AMB) | payer MEDICAID, SELFPAY ==
[2025-03-19 10:30] VITALS: BMI 36.9
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
--- OUTSIDE RECORDS SUMMARY | 2025-03-19 11:51 | XMS_ITS | Encounter Summary ---
Author Organization [employer] Address [address] [facility] 7t [place] [address] Care Team Providers Care Telephonic Case Manager Name Role Phone Car Pisano MD Primary Care Prov ider Reason for Visit * Reason Onset Date Comments Inmate Release 12/30/2022 Encounter Details Date Type Department Care Team ([facility] st Contact Info) Description 12/30/2022 Telephone [facility] CHC MED & PEDS [address] [place], [place] [phone] Car Pisano MD [address] [place] [address] Inmate Release Social History Tobacco Use Types [...] left voicemail to give a call at [phone]. * Telephone Encounter - Kenny Erazo RN - 12/31/2022 3:45 PM EDT Received message below. Noted appt was cancelled? Please contact RN to update on reason for cancellation. Thank you. * Telephone Encounter - Sheralex Nicho Ibanez - 12/30/2022 9:42 AM EDT Tc from [facility]ASQUEZ requesting an appt for pt that is being released on 01/01/2023. Junior Analyst check if pt is still active with the practice, and pt is still currently active; was last seen on 01/17/2020 with Provider Telesick appt. Pt is currently being treated for his liver, advised [facility] if any notes were involved in regards to the treatment to please be fax to [facility] provided # [phone]. Junior Analyst booked pt on 02/01/2023 @ 2:15 PM for Follow up appt with provider. Please if any question contact [facility] at [phone]. documented in this encounter Plan of Treatment Not on file documented as of this encounter Visit Diagnoses Not on filedocumented in this encounter Care Teams Telephonic Case Manager Relationship Specialty Start Date End Date MejiasCar De León MD [address] [place] [id number] PCP - General Internal Medicine 10/13/19 12/30/22 documented as of this encounter
--- OUTSIDE RECORDS SUMMARY | 2025-03-19 11:51 | XMS_ITS | Clinical Summary ---
Author Organization [facility] [employer] [facility] Address [address] [place] [address] Care Team Providers Care Back Padder Name Role Phone Unavailable Primary Care Provider [...] -pt missed apt w new PCP in [place]-pt will call to reschedule to f w [...] patient's age to complete this topic Insurance [facility] [employer] C3
--- OUTSIDE RECORDS SUMMARY | 2025-03-19 11:51 | XMS_ITS | Patient Health Record ---
Author Organization [facility] Address [address] [place] [address] Care Team Providers Care Attending Radiologist Name Role Phone [facility] Primary Care Provider [phone] [facility] Unavailable [phone] Reason For Referral No Information Plan Of Treatment No Information Insurance Providers Payer Name Payer Address Payer Phone Subscriber Number Group Number Insured Name Patient Relationship to Insured Coverage Start Date Coverage End Date [place] Medicaid C3 [address] [place], [place] [id number] Osvaldo Mcnamara Self - patient is the insured 3
== END 2025-03-19 11:49 | disposition home or self-care (01) ==
LOC: HO.HOS 10:02
PROVIDERS: PCP Nurse Practitioner Family
DX: S52.502A Unspecified fracture of the lower end of left radius, initial encounter for closed fracture (principal)
CPT/HCPCS: 99024

== ENCOUNTER 2025-03-19 10:01 | Outpatient (REF) | payer MEDICAID, SELFPAY ==
--- NOTE | ~2025-03-19 | XR_ITS ---
EXAMINATION: XR WRIST 3 OR MORE VIEWS LEFT HISTORY: M25.532 - Pain in left wrist COMPARISON: Comparison is made with the prior examination dated 03/17/2025. FINDINGS: Three views of the left wrist are submitted. Osseous mineralization is normal. The patient is again noted to be status post internal fixation of the previously seen comminuted fracture of the distal radius with a sideplate and multiple orthopedic screws. The fracture lines remain visible. The joint spaces are preserved. The soft tissues are unremarkable. XR/XR wrist LT min 3V IMPRESSION: Internal fixation of a comminuted fracture of the distal radius without change. Electronically signed by: Harish Mcclelland MD 03/19/2025 11:16 AM EDT
== END 2025-03-19 10:02 | disposition home or self-care (01) ==
LOC: HO.HOSX 10:01
PROVIDERS: PCP Nurse Practitioner Family
DX: S52.502A Unspecified fracture of the lower end of left radius, initial encounter for closed fracture (principal); X58.XXXA Exposure to other specified factors, initial encounter
CPT/HCPCS: 73110; 99212

== ENCOUNTER → 2025-03-19 10:47 | Outpatient (BNV) | payer MEDICAID, SELFPAY | PROVIDERS: PCP Nurse Practitioner Family; Visit Provider Radiology Diagnostic Radiology | DX: S52.502D Unspecified fracture of the lower end of left radius, subsequent encounter for closed fracture with routine healing (principal); Z98.890 Other specified postprocedural states | CPT/HCPCS: 73110 ==

== ENCOUNTER 2025-04-03 13:44 | Outpatient (REF) | payer MEDICAID, SELFPAY ==
--- NOTE | ~2025-04-03 | XR_ITS ---
EXAMINATION: XR WRIST, LEFT CLINICAL INFORMATION: M25.532 - Pain in left wrist COMPARISON: Previous x-ray most recent February 2025 TECHNIQUE: PA, lateral, and oblique views of the left wrist. FINDINGS: Plate and screws transfixing the comminuted intra-articular distal radial fracture. Orthopedic hardware appears unchanged and intact. Fracture lines appear more indistinct suggestive of evidence of healing. Carpal bones are normal. There is osteopenia. Soft tissues are normal. XR/XR wrist LT min 3V IMPRESSION: ORIF of left distal radius fracture. Electronically signed by: Mikaela Cassidy MD 04/03/2025 03:13 PM GELY
--- OUTSIDE RECORDS SUMMARY | 2025-04-05 17:06 | XMS_ITS | Encounter Summary ---
Author Organization [employer] Address [address] [place] [address] Care Team Providers Care Roustabout Crew Pusher Name Role Phone Car Pisano MD Primary Care Prov ider Reason for Visit * Reason Onset Date Comments Inmate Release 12/30/2022 Encounter Details Date Type Department Care Team ([facility] st Contact Info) Description 12/30/2022 Telephone [facility] CHC MED & PEDS [address], [place] [phone] Car Pisano MD [address] [place] [address] Inmate Release Social History Tobacco Use Types [...] left voicemail to give a call at [phone]. * Telephone Encounter - Kenny Erazo RN - 12/31/2022 3:45 PM EDT Received message below. Noted appt was cancelled? Please contact RN to update on reason for cancellation. Thank you. * Telephone Encounter - Sheralex Nicho Ibanez - 12/30/2022 9:42 AM EDT Tc from [facility] requesting an appt for pt that is being released on 01/01/2023. [place] Attendant check if pt is still active with the practice, and pt is still currently active; was last seen on 01/17/2020 with Provider Telesick appt. Pt is currently being treated for his liver, advised [facility] if any notes were involved in regards to the treatment to please be fax to [facility] provided # [phone]. [place] Attendant booked pt on 02/01/2023 @ 2:15 PM for Follow up appt with provider. Please if any question contact [facility] at [phone]. documented in this encounter Plan of Treatment Not on file documented as of this encounter Visit Diagnoses Not on filedocumented in this encounter Care Teams Roustabout Crew Pusher Relationship Specialty Start Date End Date MejiasCar De León MD [address] [place] [id number] PCP - General Internal Medicine 10/13/19 12/30/22 documented as of this encounter
--- OUTSIDE RECORDS SUMMARY | 2025-04-05 17:06 | XMS_ITS | Clinical Summary ---
Author Organization [facility] [employer] [facility] Address [address] [place] [address] Care Team Providers Care Curriculum And Assessment Coordinator Name Role Phone Unavailable Primary Care Provider [...] -pt missed apt w new PCP in [place]-pt will call to reschedule to f w [...] patient's age to complete this topic Insurance [facility] C[employer]
--- OUTSIDE RECORDS SUMMARY | 2025-04-05 17:06 | XMS_ITS | Patient Health Record ---
Author Organization [facility] Address [address] [place] [address] Care Team Providers Care Barbering Teacher Name Role Phone [facility] Primary Care Provider [facility], [facility] Unavailable [phone] Reason For Referral No Information Plan Of Treatment No Information Insurance Providers Payer Name Payer Address Payer Phone Subscriber Number Group Number Insured Name Patient Relationship to Insured Coverage Start Date Coverage End Date [place] Medicaid C3 [address] [place], [place] [id number] Osvaldo Mcnamara Self - patient is the insured 3
== END 2025-04-03 13:45 | disposition home or self-care (01) ==
LOC: HO.HOSX 13:44
PROVIDERS: Visit Provider Orthopaedic Surgery
DX: Z47.89 Encounter for other orthopedic aftercare (principal); S52.502D Unspecified fracture of the lower end of left radius, subsequent encounter for closed fracture with routine healing; V87.8XXD Person injured in other specified noncollision transport accidents involving motor vehicle (traffic), subsequent encounter
CPT/HCPCS: 73110; 99212

== ENCOUNTER 2025-04-03 14:54 | Outpatient (AMB) | payer MEDICAID, SELFPAY ==
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
[2025-04-03 15:21] VITALS: BMI 36.9
--- OUTSIDE RECORDS SUMMARY | 2025-04-03 16:39 | XMS_ITS | Patient Health Record ---
Author Organization [facility] Address [address] [place] [address] Care Team Providers Care Dimensional Inspector Name Role Phone [facility] Primary Care Provider [facility], [facility] Unavailable [phone] Reason For Referral No Information Plan Of Treatment No Information Insurance Providers Payer Name Payer Address Payer Phone Subscriber Number Group Number Insured Name Patient Relationship to Insured Coverage Start Date Coverage End Date [place] Medicaid C3 [address] [place], [place] [id number] Osvaldo Mcnamara Self - patient is the insured 3
--- OUTSIDE RECORDS SUMMARY | 2025-04-03 16:39 | XMS_ITS | Encounter Summary ---
Author Organization [employer] Address [address] [place] [address] Care Team Providers Care Urology Physician Name Role Phone Car Pisano MD Primary Care Prov ider Reason for Visit * Reason Onset Date Comments Inmate Release 12/30/2022 Encounter Details Date Type Department Care Team ([facility] st Contact Info) Description 12/30/2022 Telephone [facility] CHC MED & PEDS [address], [place] [phone] Car Pisano MD [address] [place] [address] Inmate Release Social History Tobacco Use Types [...] left voicemail to give a call at [phone]. * Telephone Encounter - Kenny Erazo RN - 12/31/2022 3:45 PM EDT Received message below. Noted appt was cancelled? Please contact RN to update on reason for cancellation. Thank you. * Telephone Encounter - Sheralex Nicho Ibanez - 12/30/2022 9:42 AM EDT Tc from [facility] requesting an appt for pt that is being released on 01/01/2023. Building Stonecutter check if pt is still active with the practice, and pt is still currently active; was last seen on 01/17/2020 with Provider Telesick appt. Pt is currently being treated for his liver, advised [facility] if any notes were involved in regards to the treatment to please be fax to [facility] provided # [phone]. Building Stonecutter booked pt on 02/01/2023 @ 2:15 PM for Follow up appt with provider. Please if any question contact [facility] at [phone]. documented in this encounter Plan of Treatment Not on file documented as of this encounter Visit Diagnoses Not on filedocumented in this encounter Care Teams Urology Physician Relationship Specialty Start Date End Date MejiasCar De León MD [address] [place] [id number] PCP - General Internal Medicine 10/13/19 12/30/22 documented as of this encounter
--- OUTSIDE RECORDS SUMMARY | 2025-04-03 16:39 | XMS_ITS | Clinical Summary ---
Author Organization [facility] [employer] [facility] Address [address] [place] [address] Care Team Providers Care Loader Operator/Ground Leader Name Role Phone Unavailable Primary Care Provider [...] -pt missed apt w new PCP in [place]-pt will call to reschedule to f w [...] patient's age to complete this topic [facility]
== END 2025-04-03 15:51 | disposition home or self-care (01) ==
PROVIDERS: PCP Nurse Practitioner Family
DX: S52.502A Unspecified fracture of the lower end of left radius, initial encounter for closed fracture (principal)
CPT/HCPCS: 99024

== ENCOUNTER → 2025-04-03 14:58 | Outpatient (BNV) | payer MEDICAID, SELFPAY | PROVIDERS: Visit Provider Radiology Diagnostic Radiology | DX: M25.532 Pain in left wrist (principal) | CPT/HCPCS: 73110 ==